=== PATIENT | female | born 1935 | race Caucasian/White ===

== ENCOUNTER 2023-10-13 17:59 | Inpatient (IN) | payer MEDICARE, OTHER ==
--- NOTE | 2023-10-13 19:25 | CT ---
EXAMINATION TYPE: CT brain vincent sims con DATE OF EXAM: 10/13/2023 COMPARISON: None HISTORY: 88-year-old female pain after fall, head lac on back of head CT DLP: 1215.7 mGycm Automated exposure control for dose reduction was used. Technique: Examination of the head was done in axial plane without intravenous contrast. Coronal and sagittal reconstructions performed. CT of the cervical spine was obtained in axial plane without intravenous injection of contrast mater ial. Coronal and sagittal reformatted images were obtained from the axial views for evaluation of f ractures, spinal alignment and canal. FINDINGS: Head: There is no evidence of acute intracranial hemorrhage, acute ischemic changes, mass, mass-effect, or extra-axial fluid collection. There is no effacement of cerebral sulci or basal subarachnoid cister ns. There is mild ventriculomegaly, Rivera ratio calculated at 0.36. Mild periventricular white matter hypodensity. There is no midline shift. More-white matter distinction is preserved. Rightward nasal septal deviation. Paranasal sinuses and mastoid air cells well pneumatized. Orbits an d globes are intact. Mild left posterior scalp contusion and laceration. No calvarial fracture. Cervical spine: No craniocervical junction abnormality, predental space widening, or prevertebral soft tissue swellin g. Moderate multilevel spondylotic change throughout the cervical spine. Small disc osteophyte complexes are present. No evident canal compromise by CT. No acute fracture of the cervical spine. Alignment is maintained. Variable mild and moderate neural foraminal stenoses throughout. Sagittal and coronal reformatted images confirm above findings. COMBINED IMPRESSION: 1. Mild left posterior scalp contusion and laceration. 2. Note mild hydrocephalus, probably in part due to central cerebral atrophy. Correlate to exclude a component of NPH. 3. Otherwise, no acute intracranial abnormality seen. 4. Moderate spondylitic changes throughout the cervical spine. No acute fracture or malalignment seen .
--- NOTE | 2023-10-13 19:44 | XR ---
EXAMINATION TYPE: XR Hip LT and AP Pelvis DATE OF EXAM: 10/13/2023 7:26 PM CLINICAL INDICATION:Female, 88 years old with history of fall, hip pain; [facility] COMPARISON: None. TECHNIQUE: XR Hip LT and AP Pelvis; hip was examined in the frontal and lateral projections and a AP pelvis. FINDINGS/IMPRESSION: 1. Left femoral neck fracture with varus deformity and mild displacement.. 2. The remainder of the osseous structures are intact.
--- NOTE | 2023-10-13 19:45 | XR ---
EXAMINATION TYPE: XR chest 1V DATE OF EXAM: 10/13/2023 7:26 PM CLINICAL INDICATION:Female, 88 years old with history of PRE OP CLEARANCE; [facility] COMPARISON: Chest radiographs from 12/01/2022. TECHNIQUE: XR chest 1V Frontal view of the chest. FINDINGS: Lungs/Pleura: Prominent interstitial lung markings are seen scattered throughout the lungs with nguyen ening of the diaphragm and increased lucency of the lung apices. No evidence of focal consolidation, pneumothorax or pleural effusion. Pulmonary vascularity: Unremarkable. Heart/mediastinum: Cardiomediastinal silhouette is unremarkable. Musculoskeletal: No acute osseous pathology. Right axillary surgical clips are present. IMPRESSION: Chronic changes without acute pulmonary process. No significant change from prior.
[2023-10-13] MEDS ORDERED: ACETAMINOPHEN TAB 500 MG TAB PO STA (20:50)
--- NOTE | 2023-10-13 20:51 | ED ---
Fall HPI - General Chief Complaint: Fall Stated Complaint: fall Time Seen by Provider: 10/13/23 18:05 Source: patient Mode of arrival: EMS - History of Present Illness Initial Comments: 88-year-old female presents to the emergency department from [facility] home. She has a history of advanced dementia. Patient apparently took a fall at her facility and hit her head. No reported loss of consciousness. She does not take any blood thinners. She was reporting to some left hip pain and therefore patient required transfer into our facility. Injury happened earlier today. Patient is at her baseline in regards to her mental status. She denies any other injuries to include neck or back pain. No pain in her upper extremities. She is refusing pain medications. No other alleviating, precipitating or modifying factors - Related Data Home Medications Medication Instructions Recorded Confirmed Aspirin [Adult Low Dose Aspirin EC] 81 mg PO DAILY@0800 03/26/16 10/13/23 Calcium Carb-Vit D 500Mg-5Mcg 1 tab PO DAILY@1700 03/26/16 10/13/23 [Oscal 500+D] atenoloL [Atenolol] 25 mg PO BID@0800,1700 03/26/16 10/13/23 Acetaminophen Tab [Tylenol] 650 mg PO Q4H PRN 10/13/23 10/13/23 Calcium Carbonate [Tums] 1,000 mg PO Q2H PRN 10/13/23 10/13/23 Citrucel 500mg Tablet 1 tab PO DAILY@0800 10/13/23 10/13/23 Docusate Sodium [Dok] 100 mg PO DAILY PRN 10/13/23 10/13/23 Lactobacillus Acidophilus 1 cap PO DAILY@0800 10/13/23 10/13/23 [Acidophilus Probiotic] Levothyroxine Sodium [Synthroid] 100 mcg PO DAILY@0700 10/13/23 10/13/23 Loperamide [Imodium] 2 mg PO QID PRN 10/13/23 10/13/23 Lovastatin [Mevacor] 40 mg PO HS@199910/13/23 10/13/23 Magnesium Hydroxide [Milk of 2,400 mg PO DAILY PRN 10/13/23 10/13/23 Magnesia] Hilbert-3/Dha/Epa/Fish Oil [Fish Oil 1 cap PO DAILY@0800 10/13/23 10/13/23 1,000 mg Softgel] Ondansetron [Zofran] 4 mg PO DAILY PRN 10/13/23 10/13/23 Rivastigmine 13.3MG/24Hr Patch 1 patch TRANSDERM DAILY@0800 10/13/23 10/13/23 [Exelon 13.3MG/24Hr Patch] Sertraline [Zoloft] 50 mg PO DAILY@0800 10/13/23 10/13/23 Zinc Oxide [Cozima] 1 applic TOPICAL DAILY PRN 10/13/23 10/13/23 Zinc Oxide [Cozima] 1 applic TOPICAL TID 10/13/23 10/13/23 guaiFENesin-DM 100-10MG/5ML 5 ml PO Q4H PRN 10/13/23 10/13/23 [Robitussin DM] Allergies Allergy/AdvReac Type Severity Reaction Status Date / Time acetaminophen AdvReac Unknown Verified 10/13/23 21:24 [From Darvocet-N] morphine AdvReac Nausea & Verified 10/13/23 21:24 Vomiting propoxyphene AdvReac Unknown Verified 10/13/23 21:24 [From Darvocet-N] Review of Systems ROS Statement: Those systems with pertinent positive or pertinent negative responses have been documented in the HPI. ROS Other: All systems not noted in ROS Statement are negative. Past Medical History Past Medical History: Asthma, Cancer, Dementia, Hypertension, Pneumonia, Thyroid Disorder Additional Past Medical History / Comment(s): breast CA 1986, SBO; hypercholesterolemia History of Any Multi-Drug Resistant Organisms: None Reported Past Surgical History: Appendectomy, Bowel Resection, Breast Surgery, Cholecystectomy, Hysterectomy Additional Past Surgical History / Comment(s): right mastectomy with lymph nodes removed. Past Anesthesia/Blood Transfusion Reactions: No Reported Reaction Past Psychological History: No Psychological Hx Reported Past Alcohol Use History: None Reported Past Drug Use History: None Reported - Past Family History Daughter(s) Additional Family Medical History / Comment(s): no medical history Son(s) Additional Family Medical History / Comment(s): no medical history. still living General Exam Limitations: no limitations General appearance: alert, in no apparent distress Head exam: Present: normocephalic, other (Scalp hematoma left occiput with a central small laceration measuring 5 mm. Not actively bleeding) Eye exam: Present: normal appearance, PERRL, EOMI. Absent: scleral icterus, conjunctival injection, periorbital swelling ENT exam: Present: normal exam, mucous membranes moist Neck exam: Present: normal inspection. Absent: tenderness, meningismus, lymphadenopathy Respiratory exam: Present: normal lung sounds bilaterally. Absent: respiratory distress, wheezes, rales, rhonchi, stridor Cardiovascular Exam: Present: regular rate, normal rhythm, normal heart sounds. Absent: systolic murmur, diastolic murmur, rubs, gallop, clicks GI/Abdominal exam: Present: soft, normal bowel sounds. Absent: distended, tenderness, guarding, rebound, rigid Extremities exam: Present: tenderness (To palpation of the left hip. No gross deformity appreciated patient has skin tear to the left dorsal hand), normal capillary refill. Absent: pedal edema, joint swelling, calf tenderness Back exam: Present: normal inspection Neurological exam: Present: alert, CN II-XII intact Psychiatric exam: Present: normal affect, normal mood Skin exam: Present: warm, dry, intact, normal color. Absent: rash Course Vital Signs 10/13/23 18:01 Temperature 97.6 F Pulse Rate 61 Respiratory 18 Rate Blood Pressure 178/79 O2 Sat by Pulse 94 L Oximetry Medical Decision Making - Medical Decision Making Was pt. sent in by a medical professional or institution (SULEIMAN Jones, COMMERCIAL FIELD INSPECTOR, urgent care, hospital, or long-term...) When possible be specific @ -[facility] home Did you speak to anyone other than the patient for history (EMS, parent, family, police, friend...)? What history was obtained from this source @ -EMS and the daughter Did you review nursing and triage notes (agree or disagree)? Why? @ -I reviewed and agree with nursing and triage notes Were old charts reviewed (outside hosp., previous admission, EMS record, old EKG, old radiological studies, urgent care reports/EKG's, long-term records)? Report findings @ -No old charts were reviewed Differential Diagnosis (chest pain, altered mental status, abdominal pain women, abdominal pain men, vaginal bleeding, weakness, fever, dyspnea, syncope, headache, dizziness, GI bleed, back pain, seizure, CVA, palpatations, mental health, musculoskeletal)? @ -Differential Musculoskeletal Muscular strain, contusion, ligament sprain, fracture, arthritis, septic arthritis, bursitis, cellulitis, muscle spasm, nerve compression, DVT, arterial occlusion, herpes zoster, electrolyte abnormality, tumor.... This is not meant to be in all inclusive list EKG interpreted by me (3pts min.). @ -Pending X-rays interpreted by me (1pt min.). @ -Yes and demonstrates a left femoral neck fracture CT interpreted by me (1pt min.). @ -yes and demonstrates no acute intracranial process U/S interpreted by me (1pt. min.). @ -None done What testing was considered but not performed or refused? (CT, X-rays, U/S, labs)? Why? @ -None What meds were considered but not given or refused? Why? @ -Pain medications were offered on several occasions however the patient refused Did you discuss the management of the patient with other professionals (professionals i.e. , PA, COMMERCIAL FIELD INSPECTOR, lab, RT, psych nurse, social director, pizzamaker, teacher, senior compliance officer, comp field case manager)? Give summary @ -Spoke with Dr. Bennett who will admit the patient. States her surgery will be planned for Monday Was smoking cessation discussed for >3mins.? @ -No Was critical care preformed (if so, how long)? @ -No Were there social determinants of health that impacted care today? How? (Homelessness, low income, unemployed, alcoholism, drug addiction, transportation, low edu. Level, literacy, decrease access to med. care, custodial, rehab)? @ -No Was there de-escalation of care discussed even if they declined (Discuss DNR or withdrawal of care, Hospice)? DNR status @ -Yes and patient wishes to be full code and undergo the procedure What co-morbidities impacted this encounter? (DM, HTN, Smoking, COPD, CAD, Cancer, CVA, ARF, Chemo, Hep., AIDS, mental health diagnosis, sleep apnea, morbid obesity)? @ -Dementia Was patient admitted / discharged? Hospital course, mention meds given and route, prescriptions, significant lab abnormalities, going to OR and other pertinent info. @ -Upon arrival patient was placed into room 28. Thorough history and physical exam was performed. Patient is offered pain medications however refuses. She does ago for a CT of her brain and cervical spine as well as a pelvic x-ray. Patient does have identifiable left hip fracture blood work is conducted and EKG is performed. Patient willing to undergo surgery. Called and spoke with Dr. Elaine who was agreeable to accepting admission for the patient. Surgery will likely happen on Monday. Patient is given a diet and pain medications. Scalp laceration not in need of repair. Patient was agreeable to this treatment plan and she is currently pending about on the floor Undiagnosed new problem with uncertain prognosis? @ -No Drug Therapy requiring intensive monitoring for toxicity (Heparin, Nitro, Insulin, Cardizem)? @ -No Were any procedures done? @ -No Diagnosis/symptom? @ -Acute fall, acute left femoral neck fracture, scalp hematoma, blunt head trauma Acute, or Chronic, or Acute on Chronic? @ -Acute Uncomplicated (without systemic symptoms) or Complicated (systemic symptoms)? @ -Complicated Side effects of treatment? @ -No Exacerbation, Progression, or Severe Exacerbation? @ -No Poses a threat to life or bodily function? How? (Chest pain, USA, ND, pneumonia, PE, COPD, DKA, ARF, appy, cholecystitis, CVA, Diverticulitis, Homicidal, Suicidal, threat to staff... and all critical care pts) @ -No Disposition Clinical Impression: Fall, Closed left hip fracture, Blunt head injury, Scalp laceration Disposition: ADMITTED IP TO THIS [facility] Condition: Stable Is patient prescribed a controlled substance at d/c from ED?: No Time of Disposition: 20:53 Decision to Admit Reason: Admit from EC Decision Date: 10/13/23 Decision Time: 20:53
[2023-10-13] MEDS ORDERED: NALOXONE 0.4 MG/ML 1 ML VIAL IV PRN (20:53)
[2023-10-13] MEDS ORDERED: guaiFENesin-DM 100-10MG/5ML 10 ML CUP PO PRN (22:00)
[2023-10-13] MEDS: HYDROcodone/APAP 5-325MG 1 EACH TAB PO PRN (23:06)
[2023-10-13 23:38] LABS: Basophils % (A) 0 %; Eosinophils % (A) 0 %; Lymphocytes # (A) 0.9 k/uL (1.0-4.8); Lymphocytes % (A) 6 %; MCH 30.7 pg (25.0-35.0); MCHC 32.6 g/dL (31.0-37.0); MCV 94.2 fL (80.0-100.0); Mean Platelet Volume 7.4; Monocytes # (A) 0.4 k/uL (0-1.0); Monocytes % (A) 3 %; Neutrophils # (A) 13.3 k/uL (1.3-7.7); Neutrophils % (A) 90 %; Platelet Count 207 k/uL (150-450); RBC 4.57 m/uL (3.80-5.40); RDW 12.9 % (11.5-15.5); WBC 14.7 k/uL (3.8-10.6)
[2023-10-13 23:47] LABS: ALT 20 U/L (4-34); AST 34 U/L (14-36); African American GFR (CKD) >90 (>60 ml/min/1.73 sqM); Albumin 4.5 g/dL (3.5-5.0); Alkaline Phosphatase 72 U/L (38-126); Anion Gap 12 mmol/L; Blood Urea Nitrogen 36 mg/dL (7-17); Calcium 9.3 mg/dL (8.4-10.2); Carbon Dioxide 25 mmol/L (22-30); Chloride 102 mmol/L (98-107); Glucose 125 mg/dL (74-99); Non-African American GFR(CKD) 84 (>60 ml/min/1.73 sqM); Potassium 4.2 mmol/L (3.5-5.1); Sodium 139 mmol/L (137-145); Total Bilirubin 0.8 mg/dL (0.2-1.3)
[2023-10-14] MEDS ORDERED: ONDANSETRON ODT 4 MG TAB PO STA (02:10)
[2023-10-14] MEDS ORDERED: MORPHINE SULFATE 2 MG/ML SYRINGE IVP STA (02:11)
--- NOTE | 2023-10-14 05:06 | P.CONS ---
History of Present Illness - Reason for Consult Consult date: 10/14/23 - History of Present Illness Patient is a 88 yo F with a PMH of advanced dementia, hypertension, hyperlipidemia, hypothyroidism, and asthma who presented from [facility] home after a fall. No history could be obtained from the patient due to underlying dementia. History thereby obtained from the chart. The patient had reportedly fallen at her facility and had hit her head with no reports of loss of consciousness. She had reported immediate left hip pain and was subsequently brought to the emergency room. At time of interview, the patient reported ongoing left hip pain with movement but denied any additional complaints. Denies complaints of chest discomfort, shortness of breath, fever, chills, cough, nausea, vomiting, abdominal pain, diarrhea. Attempted to contact the patient's spouse with the phone number listed in the chart with no response. Hip and pelvis x-rays in the emergency room revealed a left femoral neck fracture with mild displacement. CT head and cervical spine revealed mild hydrocephalus without any acute abnormalities. EKG revealed sinus rhythm with first-degree AV block with PVCs of 63 bpm as reviewed by me with no ST/T-wave changes noted. Chest x-ray was unremarkable. Laboratory evaluation revealed leukocytosis of 14.7, BUN 36, creatinine 0.57, and glucose 125. ED documentation reviewed and case discussed with ED provider. Review of systems: Pertinent positives and negatives as discussed in HPI, a complete review of systems was performed and all other systems are negative. Physical examination: Vital signs reviewed General: non toxic, no distress, appears at stated age, normal weight Derm: no unusual rashes/lesions, warm Head: atraumatic, normocephalic, symmetric Eyes: EOMI, no lid lag, anicteric sclera, pupils equal round reactive to light ENT: Nose and ears atraumatic Neck: No cervical lymphadenopathy, trachea midline, supple Mouth: no lip lesion, mucus membranes moist Cardiovascular: S1S2 reg, no murmur, positive dorsalis pedis pulse bilateral, no edema Lungs: CTA bilateral, no rhonchi, no rales, no accessory muscle use Abdominal: soft, nontender to palpation, no guarding Ext: muscle strength 5/5 of all extremities except proximal LLE, no gross muscle atrophy, no contractures Neuro: CN II-XI grossly intact, no gross focal neuro deficits Psych: Alert, oriented only to self Assessment: Leukocytosis, likely due to acute stressor with no signs of active infection at this time Prerenal azotemia Chronic conditions: Dementia, hypertension, hyperlipidemia, hypothyroidism, asthma Traumatic left femoral neck fracture Imaging: Hip and pelvis x-rays in the emergency room revealed a left femoral neck fracture with mild displacement. CT head and cervical spine revealed mild hydrocephalus without any acute abnormalities. EKG revealed sinus rhythm with first-degree AV block with PVCs of 63 bpm as reviewed by me with no ST/T-wave changes noted. Chest x-ray was unremarkable. Data Review: Laboratory evaluation revealed leukocytosis of 14.7, BUN 36, creatinine 0.57, and glucose 125. Plan: Continue with home medications Defer management of pain control and DVT prophylaxis to the primary surgery service Continue with IV fluids normal saline 75 mL per hour Attempt to obtain further information in am from patient's spouse if possible Preoperative evaluation The patient has advanced dementia and thereby history is limited although patient is currently denying chest discomfort or shortness of breath. She does not appear to be on diuretics with no reports of congestive heart failure on her chart. The patient is currently optimized for orthopedic surgical seizure with no obvious modifiable risk factors and no obvious nonsurgical alternatives. RCRI score: 0 points. 3.9% 30 day risk of [place], cardiac arrest, or Past Medical History Past Medical History: Asthma, Cancer, Dementia, Hypertension, Pneumonia, Thyroid Disorder Additional Past Medical History / Comment(s): breast CA 1986, SBO; hypercholesterolemia History of Any Multi-Drug Resistant Organisms: None Reported Past Surgical History: Appendectomy, Bowel Resection, Breast Surgery, Cholecystectomy, Hysterectomy Additional Past Surgical History / Comment(s): right mastectomy with lymph nodes removed. Past Anesthesia/Blood Transfusion Reactions: No Reported Reaction Past Psychological History: No Psychological Hx Reported Smoking Status: Never smoker Past Alcohol Use History: None Reported Past Drug Use History: None Reported - Past Family History Daughter(s) Additional Family Medical History / Comment(s): no medical history Son(s) Additional Family Medical History / Comment(s): no medical history. still living Medications and Allergies Home Medications Medication Instructions Recorded Confirmed Type Aspirin [Adult Low Dose Aspirin EC] 81 mg PO DAILY@0800 03/26/16 10/13/23 History Calcium Carb-Vit D 500Mg-5Mcg 1 tab PO DAILY@1700 03/26/16 10/13/23 History [Oscal 500+D] atenoloL [Atenolol] 25 mg PO BID@0800,1700 //10/13/23 History Acetaminophen Tab [Tylenol] 650 mg PO Q4H PRN 10/13/23 10/13/23 History Calcium Carbonate [Tums] 1,000 mg PO Q2H PRN 10/13/23 10/13/23 History Citrucel 500mg Tablet 1 tab PO DAILY@0800 10/13/23 10/13/23 History Docusate Sodium [Dok] 100 mg PO DAILY PRN 10/13/23 10/13/23 History Lactobacillus Acidophilus 1 cap PO DAILY@0800 10/13/23 10/13/23 History [Acidophilus Probiotic] Levothyroxine Sodium [Synthroid] 100 mcg PO DAILY@0700 10/13/23 10/13/23 History Loperamide [Imodium] 2 mg PO QID PRN 10/13/23 10/13/23 History Lovastatin [Mevacor] 40 mg PO HS@199910/13/23 10/13/23 History Magnesium Hydroxide [Milk of 2,400 mg PO DAILY PRN 10/13/23 10/13/23 History Magnesia] Ava-3/Dha/Epa/Fish Oil [Fish Oil 1 cap PO DAILY@0800 10/13/23 10/13/23 History 1,000 mg Softgel] Ondansetron [Zofran] 4 mg PO DAILY PRN 10/13/23 10/13/23 History Rivastigmine 13.3MG/24Hr Patch 1 patch TRANSDERM DAILY@0800 10/13/23 10/13/23 History [Exelon 13.3MG/24Hr Patch] Sertraline [Zoloft] 50 mg PO DAILY@0800 10/13/23 10/13/23 History Zinc Oxide [Cozima] 1 applic TOPICAL DAILY PRN 10/13/23 10/13/23 History Zinc Oxide [Cozima] 1 applic TOPICAL TID 10/13/23 10/13/23 History guaiFENesin-DM 100-10MG/5ML 5 ml PO Q4H PRN 10/13/23 10/13/23 History [Robitussin DM] Allergies Allergy/AdvReac Type Severity Reaction Status Date / Time acetaminophen AdvReac Unknown Verified 10/13/23 21:24 [facility] morphine AdvReac Nausea & Verified 10/13/23 21:24 Vomiting propoxyphene AdvReac Unknown Verified 10/13/23 21:24 [[facility]] Physical Exam Vitals: Vital Signs Temp Pulse Pulse Resp BP BP Pulse Ox 10/14/23 02:00 99.6 F 71 17 165/80 93 L 10/13/23 23:40 63 18 161/75 96 10/13/23 18:01 97.6 F 61 18 178/79 94 L Intake and Output 10/13/23 10/13/23 10/14/23 14:59 22:59 06:59 Other: Weight 52.163 kg 52.163 kg Results CBC & Chem 7: 10/13/23 23:20 10/13/23 23:20 Labs: Abnormal Lab Results - Last 24 Hours (Table) 10/13/23 10/13/23 Range/Units 23:20 23:20 WBC 14.7 H (3.8-10.6) k/uL Neutrophils # 13.3 H (1.3-7.7) k/uL Lymphocytes # 0.9 L (1.0-4.8) k/uL BUN 36 H (7-17) mg/dL Glucose 125 H (74-99) mg/dL
[2023-10-14] MEDS: SODIUM CHLORIDE 0.9% 1,000 ML IV SCH ×2 (05:43→19:59)
[2023-10-14] MEDS: LEVOTHYROXINE 100 MCG TAB PO SCH ×2 (06:28→09:50)
[2023-10-14 07:46] LABS: African American GFR (CKD) >90 (>60 ml/min/1.73 sqM); Anion Gap 11 mmol/L; Blood Urea Nitrogen 36 mg/dL (7-17); Calcium 8.8 mg/dL (8.4-10.2); Carbon Dioxide 24 mmol/L (22-30); Chloride 101 mmol/L (98-107); Glucose 135 mg/dL (74-99); Non-African American GFR(CKD) 82 (>60 ml/min/1.73 sqM); Sodium 136 mmol/L (137-145)
[2023-10-14 08:19] LABS: Basophils # (A) 0.1 k/uL (0-0.2); Basophils % (A) 0 %; Eosinophils # (A) 0.1 k/uL (0-0.7); Eosinophils % (A) 0 %; HCT 39.1 % (34.0-46.0); HGB 12.7 gm/dL (11.4-16.0); Lymphocytes % (A) 8 %; MCHC 32.4 g/dL (31.0-37.0); MCV 95.6 fL (80.0-100.0); Mean Platelet Volume 7.7; Monocytes # (A) 0.4 k/uL (0-1.0); Monocytes % (A) 3 %; Neutrophils # (A) 11.1 k/uL (1.3-7.7); Neutrophils % (A) 87 %; Platelet Count 202 k/uL (150-450); RDW 12.9 % (11.5-15.5); WBC 12.8 k/uL (3.8-10.6)
[2023-10-14] MEDS ORDERED: DOCUSATE 100 MG CAP PO PRN (09:00)
[2023-10-14] MEDS ORDERED: ONDANSETRON 4 MG TAB PO PRN (09:00)
[2023-10-14] MEDS: atenoloL 25 MG TAB PO SCH ×2 (09:49→18:34)
[2023-10-14] MEDS: HYDROcodone/APAP 5-325MG 1 EACH TAB PO PRN ×2 (09:50→15:47)
[2023-10-14] MEDS: SERTRALINE 50 MG TAB PO SCH (09:50)
[2023-10-14] MEDS: RIVASTIGMINE 13.3MG/24HR PATCH TRANSDERM SCH (09:51)
--- NOTE | 2023-10-14 10:19 | P.HPOR ---
History of Present Illness H&P Date: 10/14/23 Chief Complaint: Left hip pain . Patient is an 88-year-old female who presents to the emergency department yesterday from [facility] home status post fall. Patient does have a past medical history significant for advanced dementia, hypertension, hyperlipidemia, hypothyroidism and asthma. Apparently patient fell at facility and hit her head. There is no reported loss of consciousness. Patient does not take any blood thinners at baseline. Orthopedics was consulted for left hip pain. X- rays performed in the ER do reveal left hip femoral neck fracture. Patient was seen at bedside this morning. Patient states she does have left hip pain. Patient cannot recall any other events of yesterday due to medical history with dementia. Patient denies any other areas of pain. Patient denies any other previous orthopedic surgical history. Patient denies any upper extremity pain. Patient denies being on blood thinners. Patient denies chest pain, fever, shortness breath, nausea, vomiting, change in vision, loss of bowel/bladder control. Past Medical History Past Medical History: Asthma, Cancer, Dementia, Hypertension, Pneumonia, Thyroid Disorder Additional Past Medical History / Comment(s): breast CA 1986, SBO; hypercholesterolemia History of Any Multi-Drug Resistant Organisms: None Reported Past Surgical History: Appendectomy, Bowel Resection, Breast Surgery, Cholecystectomy, Hysterectomy Additional Past Surgical History / Comment(s): right mastectomy with lymph nodes removed. Past Anesthesia/Blood Transfusion Reactions: No Reported Reaction Past Psychological History: No Psychological Hx Reported Smoking Status: Never smoker Past Alcohol Use History: None Reported Past Drug Use History: None Reported - Past Family History Daughter(s) Additional Family Medical History / Comment(s): no medical history Son(s) Additional Family Medical History / Comment(s): no medical history. still living Medications and Allergies Home Medications Medication Instructions Recorded Confirmed Type Aspirin [Adult Low Dose Aspirin EC] 81 mg PO DAILY@0800 03/26/16 10/13/23 History Calcium Carb-Vit D 500Mg-5Mcg 1 tab PO DAILY@1700 03/26/16 10/13/23 History [Oscal 500+D] atenoloL [Atenolol] 25 mg PO BID@0800,1700 03/26/16 10/13/23 History Acetaminophen Tab [Tylenol] 650 mg PO Q4H PRN 10/13/23 10/13/23 History Calcium Carbonate [Tums] 1,000 mg PO Q2H PRN 10/13/23 10/13/23 History Citrucel 500mg Tablet 1 tab PO DAILY@0800 10/13/23 10/13/23 History Docusate Sodium [Dok] 100 mg PO DAILY PRN 10/13/23 10/13/23 History Lactobacillus Acidophilus 1 cap PO DAILY@0800 10/13/23 10/13/23 History [Acidophilus Probiotic] Levothyroxine Sodium [Synthroid] 100 mcg PO DAILY@0700 10/13/23 10/13/23 History Loperamide [Imodium] 2 mg PO QID PRN 10/13/23 10/13/23 History Lovastatin [Mevacor] 40 mg PO HS@199910/13/23 10/13/23 History Magnesium Hydroxide [Milk of 2,400 mg PO DAILY PRN 10/13/23 10/13/23 History Magnesia] [place]-3/Dha/Epa/Fish Oil [Fish Oil 1 cap PO DAILY@0800 10/13/23 10/13/23 History 1,000 mg Softgel] Ondansetron [Zofran] 4 mg PO DAILY PRN 10/13/23 10/13/23 History Rivastigmine 13.3MG/24Hr Patch 1 patch TRANSDERM DAILY@0800 10/13/23 10/13/23 History [Exelon 13.3MG/24Hr Patch] Sertraline [Zoloft] 50 mg PO DAILY@0800 10/13/23 10/13/23 History Zinc Oxide [Cozima] 1 applic TOPICAL DAILY PRN 10/13/23 10/13/23 History Zinc Oxide [Cozima] 1 applic TOPICAL TID 10/13/23 10/13/23 History guaiFENesin-DM 100-10MG/5ML 5 ml PO Q4H PRN 10/13/23 10/13/23 History [Robitussin DM] Allergies Allergy/AdvReac Type Severity Reaction Status Date / Time acetaminophen AdvReac Unknown Verified 10/13/23 21:24 [From Darvocet-N] morphine AdvReac Nausea & Verified 10/13/23 21:24 Vomiting propoxyphene AdvReac Unknown Verified 10/13/23 21:24 [From Darvocet-N] Physical Examination Inspection: Negative for any open fractures, significant erythema. There is some mild swelling present to the left hip diffusely. The left leg does appear to be shortened and externally rotated. Sensation: Equal, symmetric, bilaterally intact throughout the upper and lower extremities on exam. Palpation: significant TTP diffusely throughout the left hip. Nontender to palpation throughout rest exam. Range of motion: Full range of motion throughout bilateral upper extremity is in right lower extremity exam. Left lower extremity range of motion unable to be performed due to injury of left hip. Motor: 4/5 in all major motor groups in bilateral upper extremities and right lower extremity exam. Left lower extremity motor exam not performed due to injury Neurovascular: Radial pulses intact, 2+ bilaterally. Cap refill under 3 seconds in digits of upper extremities. DP pulses palpable bilaterally. Special tests: Positive log roll maneuver on the left. Negative Homans bilaterally Results - Labs Labs: Abnormal Lab Results - Last 24 Hours (Table) 10/13/23 10/13/23 10/14/23 Range/Units 23:20 23:20 06:32 WBC 14.7 H (3.8-10.6) k/uL Neutrophils # 13.3 H (1.3-7.7) k/uL Lymphocytes # 0.9 L (1.0-4.8) k/uL Sodium 136 L (137-145) mmol/L BUN 36 H 36 H (7-17) mg/dL Glucose 125 H 135 H (74-99) mg/dL H & H 10/13/23 Range/Units 23:20 Hgb 14.0 (11.4-16.0) gm/dL Hct 43.0 (34.0-46.0) % Result Diagrams: 10/14/23 06:32 10/14/23 06:32 - Diagnostic results Hip x-ray: report reviewed, image reviewed (X-ray of the left hip does reveal left hip femoral neck fracture.) Assessment and Plan Assessment: 1. Left hip femoral neck fracture Plan: 1. Left hip femoral neck fracture - x-rays of the left hip does reveal left hip femoral neck fracture. I did discuss the findings of the imaging with patient at bedside this morning. At this time we're recommending orthopedic surgical intervention in the form of left hip hemiarthroplasty. Surgery has been scheduled for tomorrow, 10/15/2030left hip hemiarthroplasty. With hold blood thinners at this time. Pain medication as needed. Nothing by mouth beginning midnight tonight. Nonweightbearing left lower extremity. We'll continue to follow patient during her stay in hospital. 2. Appreciate medical management 3. Pain management - Tylenol; [place] 4. DVT prophylaxis - with hold blood thinners at this time 5. GI prophylaxis - Colace 6. PT/OT - nonweightbearing left lower extremity 7. Encourage incentive spirometer use Time with Patient: Less than 30
[2023-10-14 14:20] LABS: INR 1.1 (<1.2); Partial Thromboplastin Time 25.4 sec (22.0-30.0); Prothrombin Time 12.1 sec (10.0-12.5)
[2023-10-14] MEDS: CALCIUM CARB-VIT D 500 MG-5 MCG TAB PO SCH (18:34)
[2023-10-14] MEDS: ATORVASTATIN 10 MG TAB PO SCH (20:07)
[2023-10-15] MEDS: LEVOTHYROXINE 100 MCG TAB PO SCH (05:11)
[2023-10-15] MEDS ORDERED: fentaNYL (PF) 50 MCG/ML 2 ML AMP ONE (08:12)
[2023-10-15] MEDS ORDERED: KETAMINE HCL IN 0.9 % NACL 50 MG/5 ML SYRINGE ONE (08:12)
[2023-10-15] MEDS ORDERED: LACTATED RINGERS 1,000 ML IV ONE ×2 (08:18→10:29)
[2023-10-15] MEDS ORDERED: SODIUM CHLORIDE 0.9% 50 ML with ceFAZolin 1,000 MG IV ONE ×2 (08:30)
[2023-10-15] MEDS ORDERED: ceFAZolin 1,000 MG in SODIUM CHLORIDE 0.9% 1,000 ML IRRIGATION ONE (09:11)
[2023-10-15] MEDS ORDERED: HYDROmorphone 0.5 MG/0.5 ML SYRINGE IVP PRN ×2 (10:40)
[2023-10-15] MEDS ORDERED: MAGNESIUM HYDROXIDE 2,400 MG/30 ML CUP PO PRN (10:40)
[2023-10-15] MEDS ORDERED: NALOXONE 0.4 MG/ML 1 ML VIAL IV PRN (10:40)
--- NOTE | 2023-10-15 10:53 | P.OP ---
Date of Procedure: 10/15/23 Preoperative Diagnosis: Left hip femoral neck fracture Postoperative Diagnosis: Left hip femoral neck fracture Procedure(s) Performed: Left hip hemiarthroplasty for femoral neck fracture Implants: 1.)[place] Accolade II femoral stem, neck angle 132, size 5, 35mm neck length. 2.)[place] V40 Femoral head 28mm OD, -4 offset. 3.)[place] UHR Max head Bipolar Component, OD 47mm. Anesthesia: spinal Surgeon: Myles Bennett Lead Electrician #1: Jorge Burgess Estimated Blood Loss (ml): 300 Pathology: none sent Condition: stable Disposition: PACU Description of Procedure: This is a 88 year old female with multiple medical comorbidities who presented s/p fall from standing on to their left hip that occurred at her assisted living facility with inability to ambulate and pain in their hip. The patient was evaluated in the ED and admitted to the hospital with medical clearance for surgical intervention. Risks and benefits of surgery including bleeding, damage to surrounding tissue, infection, need for further surgery as well as risks of anesthesia including DVT pulmonary embolism and even and the patient wished to proceed with surgical intervention. The patient was seen in the pre- operative area by myself. Consent and H&P were completed and updated. The correct extremity was marked in the pre-operative area by myself and all other question were answered. Operative narrative: The patient was brought to the operating room by the department of anesthesia. Spinal anesthesia was performed by the department of anesthesia. The patient was then transferred carefully to the operative table and placed in the lateral position with an axillary role placed in the contralateral arm-pit region and the patient was secured in the lateral position with the aid of a pegboard with the hip perpendicular to the floor. All bony prominences were well padded. The left lower extremity was then prepped and draped in normal sterile fashion. Pre-operative time out was performed indicating the correct patient, procedure and laterality. All in the room agreed. Pre-operative antibiotics were given prior to skin incision. A curvilinear incision was made with a 10-blade scalpel on the lateral aspect of the hip, slightly posterior to the greater trochanter and carried distally towards the axis of the femoral shaft to initiate the posterior approach to the hip joint. Bovie cautery was used for meticulous hemostasis and dissection was then taken down to the tensor fascia. Tensor fascia was incised distally and extended proximally to the gluteus carline muscle. Blunt finger dissection was then used to split the gluteus carline muscle in its natural plane. Charnley retractor was then placed deep to the tensor fascia and gluteus carline to un veil the trochanteric bursa. Bursa was sharply incised taking care to protect the sciatic nerve posteriorly. The short external rotators were then identified. Reji retractor was then placed between the gluteus medius and piriformis tendon. The piriformis tendon and short external rotators were then tagged with a #5 Ethibond suture. Using bovie cautery the short external rotators were then incised off of their jessica insertion at the piriformis fossa and reflected posteriorly to protect the sciatic nerve. The posterior hip capsule was then incised in a L shaped fashion along the superior portion of the femoral neck taking care to stay on bone. Fracture hematoma was then evacuated, the femoral head was then extracted with a corkscrew and sized to a 47. The acetabulum was then thoroughly irrigated and all fracture fragments were debrided and removed and the labrum was intact with no signs of acetabular arthritis. Size 47 and 48 were both trialed on a head on a stick was then placed into the acetabulum with good suction and appropriate fit and decision was made to go forward with a size 47 outer diameter head. Further remnants of the external rotator insertion were debrided form the piriformis fossa and femoral elevator and Comerio retractor was used to elevate the femur. A touch up neck was performed 1.5cm proximal to the lesser trochanter. Box osteotome was then utilized to gain entrance into the medullary canal taking care to stay lateralized. Axial canal finder was then inserted down the femoral shaft again keeping lateral pressure upon insertion. Sequential femoral broaching was then performed starting with a size 0 broach up to a size 5 which appeared to have a solid fit. A standard length neck and 0 offset femoral head was trialed. The hip was reduced and leg lengths were checked and found to be acceptable. The hip appeared to have good stability. The hip was then dislocated and the stem was found to be intact with good fit still after trialing. Final implants were then selected including a size 5, 132 degree neck femoral stem with a 47 outer diameter bipolar head and a -4 offset which was assembled and inserted into the femoral canal with lateral pressure to avoid varus placement. The hip was then reduced and ranged again and was stable with appropriate tensioning and leg lengths. A 2.0 drill bit was then used to drill 2 holes in the posterior aspect of the greater trochanter. The previously tagged short external rotators and capsule were then passed through the drill holes with a suture passer and the hip was then abducted and externally rotated to take pressure off of the short external rotators and capsular repair. The #5 Ethibond sutures were then tied with appropriate tension and a solid repair of the external rotators and posterior capsule was able to be achieved. IT band was then closed with locking #1 Vicryl sutures. Subcutaneous closure was performed with 0 Vicryl followed by 2-0 Vicryl and rebecca for closure of skin. A sterile Optifoam dressing was then applied to the incision. The patient was then woken by the department of anesthesia and transferred back to the hospital bed and transported to PACU in stable condition. All needle and instrument counts were correct at the end of the procedure. Jorge BEARDEN was present for the case to assist in implant placement and manipulation of the hip. Myles Bennett DO Orthopedic Surgeon
--- NOTE | 2023-10-15 11:33 | XR ---
EXAMINATION TYPE: XR Hip Limited LT DATE OF EXAM: 10/15/2023 11:17 AM CLINICAL INDICATION:Female, 88 years old with history of S/P LEFT HIP HEMIARTHROPLASTY; [facility] COMPARISON: 10/11/2023. TECHNIQUE: XR Hip Limited LT; hip was examined in the frontal and lateral projections and a AP pelvis . FINDINGS: Post arthroplasty changes, hardware is intact, alignment is appropriate. No evidence of fra cture. Postoperative changes of the soft tissues with subcutaneous gas. No evidence of any acute osse ous pathology or joint dislocation. IMPRESSION: Hip arthroplasty with hardware intact and in appropriate alignment. No acute fracture.
[2023-10-15] MEDS: atenoloL 25 MG TAB PO SCH ×2 (11:34→17:15)
[2023-10-15] MEDS: SODIUM CHLORIDE 0.9% 1,000 ML IV SCH ×2 (11:35→21:33)
--- NOTE | 2023-10-15 12:17 | P.PN ---
Subjective Progress Note Date: 10/15/23 No new complaints today. Doing well following surgery with hip XR showing good fixation. Gen: awake, alert HEENT: normocephalic, atraumatic, good hearing acuity, moist mucous membranes Resp: good air exchange, breathing comfortably with no accessory muscle use CVS: good distal perfusion x 4, GI: soft, NTTP, ND : no SPT, no CVAT, west catheter is present MSK: no pitting edema, no clubbing Neuro: non-focal, moving all extremities Psych: cooperative, euthymic mood Hospital Course: Patient is a 88 yo F with a PMH of advanced dementia, hypertension, hyperlipidemia, hypothyroidism, and asthma who presented from [facility] home after a fall. Hip and pelvis x-rays in the emergency room revealed a left femoral neck fracture with mild displacement. CT head and cervical spine revealed mild hydrocephalus without any acute abnormalities. EKG revealed sinus rhythm with first-degree AV block with PVCs of 63 bpm as reviewed by me with no ST/T-wave changes noted. Chest x-ray was unremarkable. Laboratory evaluation revealed leukocytosis of 14.7, BUN 36, creatinine 0.57, and glucose 125. Assessment: Leukocytosis, likely due to acute stressor with no signs of active infection at this time Prerenal azotemia Chronic conditions: Dementia, hypertension, hyperlipidemia, hypothyroidism, asthma Traumatic left femoral neck fracture Imaging: Hip and pelvis x-rays in the emergency room revealed a left femoral neck fracture with mild displacement. CT head and cervical spine revealed mild hydrocephalus without any acute abnormalities. EKG revealed sinus rhythm with first-degree AV block with PVCs of 63 bpm as reviewed by me with no ST/T-wave changes noted. Chest x-ray was unremarkable. Data Review: Laboratory evaluation revealed leukocytosis of 14.7, BUN 36, creatinine 0.57, and glucose 125. Plan: Continue with home medications Defer management of pain control and DVT prophylaxis to the primary surgery service Continue with IV fluids normal saline 75 mL per hour Objective - Vital Signs Vital signs: Vital Signs Temp 97.4 F L 10/15/23 11:30 Pulse 64 10/15/23 11:30 Resp 16 10/15/23 11:32 BP 103/55 10/15/23 11:30 Pulse Ox 93 L 10/15/23 12:11 FiO2 Intake & Output 10/14/23 10/15/23 10/15/23 18:59 06:59 18:59 Intake Total 900 1251 Output Total 400 500 Balance 900 -400 751 Intake: IV 1251 Intake, IV Titration 900 Amount Sodium Chloride 0.9% 1, 900 000 ml @ 75 mls/hr IV . [id number] [facility] Rx#:[id number] Output: Urine 400 200 Estimated Blood Loss 300 Other: Voiding Method External Catheter Indwelling Catheter Indwelling Catheter - Labs CBC & Chem 7: 10/14/23 06:32 10/14/23 06:32
[2023-10-15 12:29] LABS: Basophils % (A) 0 %; Eosinophils # (A) 0.1 k/uL (0-0.7); Eosinophils % (A) 1 %; HCT 32.1 % (34.0-46.0); HGB 10.5 gm/dL (11.4-16.0); Lymphocytes # (A) 0.9 k/uL (1.0-4.8); Lymphocytes % (A) 10 %; MCH 30.9 pg (25.0-35.0); MCHC 32.7 g/dL (31.0-37.0); MCV 94.6 fL (80.0-100.0); Mean Platelet Volume 7.5; Monocytes # (A) 0.4 k/uL (0-1.0); Monocytes % (A) 4 %; Neutrophils # (A) 8.1 k/uL (1.3-7.7); Neutrophils % (A) 84 %; Platelet Count 160 k/uL (150-450); RBC 3.39 m/uL (3.80-5.40); RDW 12.9 % (11.5-15.5); WBC 9.6 k/uL (3.8-10.6)
[2023-10-15] MEDS: SERTRALINE 50 MG TAB PO SCH (13:19)
[2023-10-15] MEDS: RIVASTIGMINE 13.3MG/24HR PATCH TRANSDERM SCH (13:19)
[2023-10-15] MEDS: HYDROcodone/APAP 5-325MG 1 EACH TAB PO PRN (14:46)
[2023-10-15] MEDS: CALCIUM CARB-VIT D 500 MG-5 MCG TAB PO SCH (17:15)
[2023-10-15] MEDS: ATORVASTATIN 10 MG TAB PO SCH (20:30)
[2023-10-15] MEDS: ACETAMINOPHEN TAB 325 MG TAB PO PRN (20:30)
[2023-10-15] MEDS: SENNOSIDES-DOCUSATE SODIUM 1 EACH TAB PO SCH (21:58)
[2023-10-16] MEDS: LEVOTHYROXINE 100 MCG TAB PO SCH (06:07)
[2023-10-16] MEDS: RIVASTIGMINE 13.3MG/24HR PATCH TRANSDERM SCH (08:28)
[2023-10-16] MEDS: SERTRALINE 50 MG TAB PO SCH (08:29)
[2023-10-16] MEDS: ENOXAPARIN 30 MG/0.3 ML SYRINGE SQ SCH (08:29)
[2023-10-16] MEDS: atenoloL 25 MG TAB PO SCH ×2 (08:29→17:16)
[2023-10-16] MEDS: SODIUM CHLORIDE 0.9% 1,000 ML IV SCH ×2 (08:29→23:40)
[2023-10-16] MEDS: FERROUS SULFATE 325 MG TAB PO SCH (08:29)
[2023-10-16] MEDS: HYDROcodone/APAP 5-325MG 1 EACH TAB PO PRN ×2 (08:43→15:39)
--- NOTE | 2023-10-16 10:41 | P.PN ---
Subjective Progress Note Date: 10/16/23 No new complaints today. Doing well following surgery with hip XR showing good fixation. Gen: awake, alert HEENT: normocephalic, atraumatic, good hearing acuity, moist mucous membranes Resp: good air exchange, breathing comfortably with no accessory muscle use CVS: good distal perfusion x 4, GI: soft, NTTP, ND : no SPT, no CVAT, west catheter is present MSK: no pitting edema, no clubbing Neuro: non-focal, moving all extremities Psych: cooperative, euthymic mood Hospital Course: Patient is a 88 yo F with a PMH of advanced dementia, hypertension, hyperlipidemia, hypothyroidism, and asthma who presented from [facility] home after a fall. Hip and pelvis x-rays in the emergency room revealed a left femoral neck fracture with mild displacement. CT head and cervical spine revealed mild hydrocephalus without any acute abnormalities. EKG revealed sinus rhythm with first-degree AV block with PVCs of 63 bpm as reviewed by me with no ST/T-wave changes noted. Chest x-ray was unremarkable. Laboratory evaluation revealed leukocytosis of 14.7, BUN 36, creatinine 0.57, and glucose 125. Assessment: Leukocytosis, likely due to acute stressor with no signs of active infection at this time Prerenal azotemia Chronic conditions: Dementia, hypertension, hyperlipidemia, hypothyroidism, asthma Traumatic left femoral neck fracture Imaging: Hip and pelvis x-rays in the emergency room revealed a left femoral neck fracture with mild displacement. CT head and cervical spine revealed mild hydrocephalus without any acute abnormalities. EKG revealed sinus rhythm with first-degree AV block with PVCs of 63 bpm as reviewed by me with no ST/T-wave changes noted. Chest x-ray was unremarkable. Data Review: Laboratory evaluation revealed leukocytosis of 14.7, BUN 36, creatinine 0.57, and glucose 125. Plan: Continue with home medications Defer management of pain control and DVT prophylaxis to the primary surgery service Continue with IV fluids normal saline 75 mL per hour Objective - Vital Signs Vital signs: Vital Signs Temp 98.4 F 10/16/23 08:30 Pulse 78 10/16/23 08:30 Resp 18 10/16/23 08:30 BP 129/60 10/16/23 08:30 Pulse Ox 98 10/16/23 09:19 FiO2 Intake & Output 10/15/23 10/16/23 10/16/23 18:59 06:59 18:59 Intake Total 1776 Output Total 500 500 Balance 1276 -500 Intake: IV 1776 Sodium Chloride 0.9% 1, 525 000 ml @ 75 mls/hr IV . [id number] [facility] Rx#:[id number] Output: Urine 200 500 Estimated Blood Loss 300 Other: Voiding Method Indwelling Catheter Indwelling Catheter - Labs CBC & Chem 7: 10/15/23 11:40 10/14/23 06:32 Labs: Abnormal Lab Results - Last 24 Hours (Table) 10/15/23 Range/Units 11:40 RBC 3.39 L (3.80-5.40) m/uL Hgb 10.5 L (11.4-16.0) gm/dL Hct 32.1 L (34.0-46.0) % Neutrophils # 8.1 H (1.3-7.7) k/uL Lymphocytes # 0.9 L (1.0-4.8) k/uL
[2023-10-16] MEDS: CALCIUM CARB-VIT D 500 MG-5 MCG TAB PO SCH (15:39)
[2023-10-16] MEDS: SENNOSIDES-DOCUSATE SODIUM 1 EACH TAB PO SCH (20:27)
[2023-10-16] MEDS: ATORVASTATIN 10 MG TAB PO SCH (20:27)
[2023-10-17] MEDS: LEVOTHYROXINE 100 MCG TAB PO SCH (06:11)
[2023-10-17] MEDS: SERTRALINE 50 MG TAB PO SCH (08:36)
[2023-10-17] MEDS: RIVASTIGMINE 13.3MG/24HR PATCH TRANSDERM SCH (08:36)
[2023-10-17] MEDS: ENOXAPARIN 30 MG/0.3 ML SYRINGE SQ SCH (08:36)
[2023-10-17] MEDS: atenoloL 25 MG TAB PO SCH ×2 (08:36→18:16)
[2023-10-17] MEDS: HYDROcodone/APAP 5-325MG 1 EACH TAB PO PRN ×2 (08:37→13:18)
--- NOTE | 2023-10-17 11:25 | P.PN ---
Subjective Progress Note Date: 10/17/23 Patient seen and examined at bedside. No new complaints today. Did well with physical therapy. Gen: awake, alert HEENT: normocephalic, atraumatic, good hearing acuity, moist mucous membranes Resp: good air exchange, breathing comfortably with no accessory muscle use CVS: good distal perfusion x 4, GI: soft, NTTP, ND : no SPT, no CVAT MSK: no pitting edema, no clubbing Neuro: non-focal, moving all extremities Psych: cooperative, euthymic mood, oriented 1 Hospital Course: Patient is a 88 yo F with a PMH of advanced dementia, hypertension, hyperlipidemia, hypothyroidism, and asthma who presented from [facility] home after a fall. Hip and pelvis x-rays in the emergency room revealed a left femoral neck fracture with mild displacement. CT head and cervical spine revealed mild hydrocephalus without any acute abnormalities. EKG revealed sinus rhythm with first-degree AV block with PVCs of [address]/T-wave changes noted. Chest x-ray was unremarkable. Laboratory evaluation revealed leukocytosis of 14.7, BUN 36, creatinine 0.57, and glucose 125. She is now status post hemiar throplasty. Assessment: Leukocytosis, likely due to acute stressor with no signs of active infection at this time Prerenal azotemia Traumatic left femoral neck fracture, status post hemiarthroplasty Chronic conditions: Dementia, hypertension, hyperlipidemia, hypothyroidism, asthma Data Review today: Temperature 98.6, pulse 70, respiratory 16, blood pressure 131/65, saturating at 94% on 1 L. Plan: Continue with home medications Defer management of pain control and DVT prophylaxis to the primary surgery service Continue with IV fluids normal saline 75 mL per hour -Patient is medically optimized for discharge, will likely need subacute rehab. Thank you for allowing us to participate in the care of this pleasant patient. Do not hesitate to contact us with questions. Someone can be reached from the [facility] hospitalist group all hours of the day at [phone] or via perfect serve. Objective - Vital Signs Vital signs: Vital Signs Temp 98.6 F 10/17/23 07:56 Pulse 70 10/17/23 07:56 Resp 16 10/17/23 07:56 BP 131/65 10/17/23 07:56 Pulse Ox 94 L 10/17/23 07:56 FiO2 Intake & Output 10/16/23 10/17/23 10/17/23 18:59 06:59 18:59 Intake Total 200 Output Total 300 200 Balance -300 0 Intake: IV 200 Sodium Chloride 0.9% 1, 200 000 ml @ 75 mls/hr IV . [id number] [facility] Rx#:[id number] Output: Urine 300 200 Other: Voiding Method Indwelling Catheter External Catheter Diaper External Catheter # Voids 1 - Labs CBC & Chem 7: 10/15/23 11:40 10/14/23 06:32
--- NOTE | 2023-10-17 12:15 | P.PN ---
Subjective Progress Note Date: 10/16/23 Principal diagnosis: Left hip femoral neck fracture Patient was seen at bedside this morning lying semirecumbent position with dressing over the left hip. Patient says she has having a lot of pain to the left hip at this time. Patient says she is looking forward to working with therapy later today. Patient has Jasso in place. Patient denies chest pain, fever, shortness breath, nausea, vomiting, change in vision, loss of bowel/bladder control. Objective - Vital Signs Vital signs: Vital Signs Temp 97.5 F L 10/16/23 01:06 Pulse 71 10/16/23 01:06 Resp 18 10/16/23 01:06 BP 123/60 10/16/23 01:06 Pulse Ox 99 10/16/23 01:06 FiO2 Intake & Output 10/15/23 10/16/23 10/16/23 18:59 06:59 18:59 Intake Total 1776 Output Total 500 500 Balance 1276 -500 Intake: IV 1776 Sodium Chloride 0.9% 1, 525 000 ml @ 75 mls/hr IV . [id number] [facility] Rx#:[id number] Output: Urine 200 500 Estimated Blood Loss 300 Other: Voiding Method Indwelling Catheter Indwelling Catheter - Exam Inspection: Negative for any open fractures, significant erythema. There is some mild swelling present to the left hip diffusely. Dressing present over the left lateral hip. Some minimal spotting present. Sensation: Equal, symmetric, bilaterally intact throughout the upper and lower extremities on exam. Palpation: Moderate TTP diffusely throughout the left hip. Nontender to palpation throughout rest exam. Range of motion: Full range of motion throughout bilateral upper extremity and in right lower extremity exam. Left lower extremity range of motion is limited secondary to surgery to the left hip and pain referred to left hip. Patient is able wiggle toes and left foot in dorsi and plantarflex left ankle. Motor: 4/5 in all major motor groups in bilateral upper extremities and right lower extremity exam. Left lower extremity motor exam 4-/5 in resisted left hip flexion/extension and left knee flexion extension. Neurovascular: Radial pulses intact, 2+ bilaterally. Cap refill under 3 seconds in digits of upper extremities. DP pulses palpable bilaterally. Special tests: Negative Homans bilaterally - Labs CBC & Chem 7: 10/15/23 11:40 10/14/23 06:32 Labs: Abnormal Lab Results - Last 24 Hours (Table) 10/15/23 Range/Units 11:40 RBC 3.39 L (3.80-5.40) m/uL Hgb 10.5 L (11.4-16.0) gm/dL Hct 32.1 L (34.0-46.0) % Neutrophils # 8.1 H (1.3-7.7) k/uL Lymphocytes # 0.9 L (1.0-4.8) k/uL Assessment and Plan Assessment: 1. Left hip femoral neck fracture - Postop day #2 status post left hip hemiarthroplasty Plan: 1. Left hip femoral neck fracture - left hip hemiarthroplasty performed yesterday, 10/15/2023. Patient stable at bedside this morning sitting up in bed with dressing over left hip. Work with therapy daily. Pain medication as needed. We'll continue to follow patient during [facility]. Plan for discharge to rehab Mon vs . 2. Appreciate medical management 3. Pain management - Tylenol; [place] 4. DVT prophylaxis - Lovenox 5. GI prophylaxis - Colace 6. PT/OT - nonweightbearing left lower extremity 7. Encourage incentive spirometer use 8. Discharge planning - plan for discharge to rehab Monday versus Time with Patient: Less than 30
--- NOTE | 2023-10-17 12:16 | P.PN ---
Subjective Progress Note Date: 10/17/23 Principal diagnosis: Left hip femoral neck fracture Patient was seen at bedside this morning sitting up in chair with legs elevated and dressing over left hip. Patient's daughter was present during the encounter. Case management working on rehab placement currently. Patient says she is still having a lot of pain in the left hip especially when she ambulates with therapy. Patient says the pain is under better control and she is resting. Jasso is in place currently. Patient denies chest pain, fever, shortness breath, nausea, vomiting, change in vision, loss of bowel/bladder control. Objective - Vital Signs Vital signs: Vital Signs Temp 98.6 F 10/17/23 07:56 Pulse 70 10/17/23 07:56 Resp 16 10/17/23 07:56 BP 131/65 10/17/23 07:56 Pulse Ox 94 L 10/17/23 07:56 FiO2 Intake & Output 10/16/23 10/17/23 10/17/23 18:59 06:59 18:59 Intake Total 200 Output Total 300 200 Balance -300 0 Intake: IV 200 Sodium Chloride 0.9% 1, 200 000 ml @ 75 mls/hr IV . [id number] [facility] Rx#:[id number] Output: Urine 300 200 Other: Voiding Method Indwelling Catheter External Catheter Diaper External Catheter # Voids 1 - Exam Inspection: Negative for any open fractures, significant erythema. There is some mild swelling present to the left hip diffusely. Dressing present over the left lateral hip. Some minimal spotting present. Sensation: Equal, symmetric, bilaterally intact throughout the upper and lower extremities on exam. Palpation: Moderate TTP diffusely throughout the left hip. Nontender to palpation throughout rest exam. Range of motion: Full range of motion throughout bilateral upper extremity and in right lower extremity exam. Left lower extremity range of motion is limited secondary to surgery to the left hip and pain referred to left hip. Patient is able wiggle toes and left foot in dorsi and plantarflex left ankle. Motor: 4/5 in all major motor groups in bilateral upper extremities and right lower extremity exam. Left lower extremity motor exam 4-/5 in resisted left hip flexion/extension and left knee flexion extension. Neurovascular: Radial pulses intact, 2+ bilaterally. Cap refill under 3 seconds in digits of upper extremities. DP pulses palpable bilaterally. Special tests: Negative Homans bilaterally - Labs CBC & Chem 7: 10/15/23 11:40 10/14/23 06:32 Assessment and Plan Assessment: 1. Left hip femoral neck fracture - Postop day #2 status post left hip hemiarthroplasty Plan: 1. Left hip femoral neck fracture - left hip hemiarthroplasty performed 10/15/2023. Patient stable at bedside this morning sitting up in chair with dressing over left hip. Work with therapy daily. Pain medication as needed. We'll continue to follow patient during standard [facility]. Plan for discharge to rehab tomorrow versus . 2. Appreciate medical management 3. Pain management - Tylenol; [place] 4. DVT prophylaxis - Lovenox 5. GI prophylaxis - Colace 6. PT/OT - nonweightbearing left lower extremity 7. Encourage incentive spirometer use 8. Discharge planning - plan for discharge to rehab tomorrow versus Time with Patient: Less than 30
[2023-10-17] MEDS: SODIUM CHLORIDE 0.9% 1,000 ML IV SCH (12:32)
[2023-10-17] MEDS: FERROUS SULFATE 325 MG TAB PO SCH (12:33)
[2023-10-17 14:53] LABS: Basophils # (A) 0.02 X 10*3/uL (0.00-0.10); Basophils % (A) 0.2 %; Eosinophils # (A) 0.09 X 10*3/uL (0.04-0.35); Eosinophils % (A) 0.7 %; HCT 26.6 % (37.2-46.3); HGB 8.5 g/dL (12.0-15.0); Lymphocytes # (A) 1.58 X 10*3/uL (0.90-5.00); Lymphocytes % (A) 11.9 %; Mean Platelet Volume 10.5 FL (9.5-12.2); Monocytes # (A) 1.17 X 10*3/uL (0.20-1.00); Monocytes % (A) 8.8 %; NRBC Per 100 WBC 0 X 10*3/uL (0.00-0.01); Neutrophils # (A) 10.34 X 10*3/uL (1.80-7.70); Platelet Count 170 X 10*3/uL (140-440); RBC 2.83 X 10*6/uL (4.10-5.20); RDW 13.4 % (11.5-14.5); WBC 13.25 X 10*3/uL (4.50-10.00)
[2023-10-17] MEDS: CALCIUM CARB-VIT D 500 MG-5 MCG TAB PO SCH (18:16)
[2023-10-17] MEDS: SENNOSIDES-DOCUSATE SODIUM 1 EACH TAB PO SCH (20:29)
[2023-10-17] MEDS: ATORVASTATIN 10 MG TAB PO SCH (20:29)
[2023-10-18] MEDS: SODIUM CHLORIDE 0.9% 1,000 ML IV SCH ×2 (03:36→04:24)
[2023-10-18 05:37] LABS: Basophils % (A) 0 %; Eosinophils # (A) 0.2 k/uL (0-0.7); Eosinophils % (A) 2 %; HCT 23.6 % (34.0-46.0); Lymphocytes # (A) 1.1 k/uL (1.0-4.8); Lymphocytes % (A) 12 %; MCH 31.3 pg (25.0-35.0); MCV 94.7 fL (80.0-100.0); Mean Platelet Volume 8.6; Monocytes # (A) 0.5 k/uL (0-1.0); Monocytes % (A) 5 %; Neutrophils # (A) 7.2 k/uL (1.3-7.7); Neutrophils % (A) 79 %; Platelet Count 170 k/uL (150-450); RDW 13.4 % (11.5-15.5); WBC 9.1 k/uL (3.8-10.6)
[2023-10-18 05:42] LABS: HGB 7.8 gm/dL (11.4-16.0)
[2023-10-18 05:59] LABS: African American GFR (CKD) >90 (>60 ml/min/1.73 sqM); Anion Gap 7 mmol/L; Blood Urea Nitrogen 28 mg/dL (7-17); Calcium 8.2 mg/dL (8.4-10.2); Carbon Dioxide 26 mmol/L (22-30); Chloride 104 mmol/L (98-107); Glucose 106 mg/dL (74-99); Non-African American GFR(CKD) >90 (>60 ml/min/1.73 sqM); Potassium 3.5 mmol/L (3.5-5.1); Sodium 137 mmol/L (137-145)
[2023-10-18] MEDS: LEVOTHYROXINE 100 MCG TAB PO SCH (06:01)
[2023-10-18] MEDS: ENOXAPARIN 30 MG/0.3 ML SYRINGE SQ SCH (09:39)
[2023-10-18] MEDS: atenoloL 25 MG TAB PO SCH ×2 (09:40→16:24)
[2023-10-18] MEDS: SERTRALINE 50 MG TAB PO SCH (09:40)
--- NOTE | 2023-10-18 11:59 | P.PN ---
Subjective Progress Note Date: 10/18/23 Principal diagnosis: Left hip femoral neck fracture Patient was seen at bedside this morning sitting up in bed with legs elevated and dressing over left hip. Patient's daughter was present during the encounter. Case management working on rehab placement currently. Nurse alyx zuñiga patient had bowel movement which was black/tarry this morning, concerned for GI bleed. Medicine following this. Patient says the pain is under better control and she is resting. Patient denies chest pain, fever, shortness breath, nausea, vomiting, change in vision, loss of bowel/bladder control. Objective - Vital Signs Vital signs: Vital Signs Temp 97.8 F 10/18/23 06:58 Pulse 69 10/18/23 10:13 Resp 16 10/18/23 10:13 BP 121/56 10/18/23 10:13 Pulse Ox 100 10/18/23 10:13 FiO2 Intake & Output 10/17/23 10/18/23 10/18/23 18:59 06:59 18:59 Intake Total 700 Output Total 120 Balance -120 700 Intake: Intake, IV Titration 700 Amount Lactated Ringers 1,000 ml 700 @ 0 mls/hr IV .[facility] Rx#:[id number] Output: Urine 120 Other: Voiding Method Diaper External Catheter # Voids 2 # Bowel Movements 1 1 - Exam Inspection: Negative for any open fractures, significant erythema. There is some mild swelling present to the left hip diffusely. Dressing present over the left lateral hip. Some minimal spotting present. Sensation: Equal, symmetric, bilaterally intact throughout the upper and lower extremities on exam. Palpation: Moderate TTP diffusely throughout the left hip. Nontender to palpation throughout rest exam. Range of motion: Full range of motion throughout bilateral upper extremity and in right lower extremity exam. Left lower extremity range of motion is limited secondary to surgery to the left hip and pain referred to left hip. Patient is able wiggle toes and left foot in dorsi and plantarflex left ankle. Motor: 4/5 in all major motor groups in bilateral upper extremities and right lower extremity exam. Left lower extremity motor exam 4-/5 in resisted left hip flexion/extension and left knee flexion extension. Neurovascular: Radial pulses intact, 2+ bilaterally. Cap refill under 3 seconds in digits of upper extremities. DP pulses palpable bilaterally. Special tests: Negative Homans bilaterally - Labs CBC & Chem 7: 10/18/23 05:19 10/18/23 05:19 Labs: Abnormal Lab Results - Last 24 Hours (Table) 10/17/23 10/18/23 10/18/23 Range/Units 11:19 05:19 05:19 WBC 13.25 H (4.50-10.00) X 10*3/uL RBC 2.83 L 2.50 L (4.10-5.20) X 10*6/uL Hgb 8.5 L 7.8 L D (12.0-15.0) g/dL Hct 26.6 L 23.6 L (37.2-46.3) % Immature Gran # 0.05 H (0.00-0.04) X 10*3/uL Neutrophils # 10.34 H (1.80-7.70) X 10*3/uL Monocytes # 1.17 H (0.20-1.00) X 10*3/uL BUN 28 H (7-17) mg/dL Creatinine 0.45 L (0.52-1.04) mg/dL Glucose 106 H (74-99) mg/dL Calcium 8.2 L (8.4-10.2) mg/dL Assessment and Plan Assessment: 1. Left hip femoral neck fracture - Postop day #3 status post left hip hemiarthroplasty Plan: 1. Left hip femoral neck fracture - left hip hemiarthroplasty performed 10/15/2023. Patient stable at bedside this morning sitting up in bed with dressing over left hip. hemoglobin 7.8. patient on iron currently. medicine working up for GI bleed. okay to discontinue lovenox as long as patient has SON hose and SCDs on bilaterally. Work with therapy daily. Pain medication as needed. patient orthopedically stable for discharge. We will continue to be available as needed to see patient. follow up in office in [address] Bennett. Discharge per medicine. 2. Appreciate medical management 3. Pain management - Tylenol; [place] 4. DVT prophylaxis - Lovenox; if medicine working up for GI bleed, okay to discontinue lovenox as long as patient has SON hose and SCDs on bilaterally. 5. GI prophylaxis - Colace 6. PT/OT - nonweightbearing left lower extremity 7. Encourage incentive spirometer use 8. Discharge planning - discharge per medicine Time with Patient: Less than 30
[2023-10-18] MEDS: PANTOPRAZOLE 40 MG/10 ML VIAL IVP SCH ×2 (12:36→21:49)
[2023-10-18] MEDS: RIVASTIGMINE 13.3MG/24HR PATCH TRANSDERM SCH (12:36)
[2023-10-18] MEDS: FERROUS SULFATE 325 MG TAB PO SCH (14:04)
[2023-10-18 14:12] LABS: HCT 27.3 % (34.0-46.0); HGB 8.5 gm/dL (11.4-16.0); Hypochromasia Moderate; MCHC 31.3 g/dL (31.0-37.0); MCV 99.1 fL (80.0-100.0); Mean Platelet Volume 8.2; Platelet Count 202 k/uL (150-450); RBC 2.75 m/uL (3.80-5.40); RDW 13.5 % (11.5-15.5); WBC 11.4 k/uL (3.8-10.6)
--- NOTE | 2023-10-18 15:31 | P.PN ---
Subjective Progress Note Date: 10/18/23 Hospital Course: Patient is a 88 yo F with a PMH of advanced dementia, hypertension, hy perlipidemia, hypothyroidism, and asthma who presented from [facility] home after a fall. Hip and pelvis x-rays in the emergency room revealed a left femoral neck fracture with mild displacement. CT head and cervical spine revealed mild hydrocephalus without any acute abnormalities. EKG revealed sinus rhythm with first-degree AV block with PVCs of [address]/T-wave changes noted. Chest x-ray was unremarkable. Laboratory evaluation revealed leukocytosis of 14.7, BUN 36, creatinine 0.57, and glucose 125. She is now status post hemiarthroplasty. Patient did have a large bowel movement on 10/18 which was black and tarry. Hemoglobin has also been dropping. General surgery consulted. Subjective: Seen and examined at bedside. No new complaints by patient. Per nursing, patient did have a large tarry/black loose stool. Pertinent positives and negatives as discussed above, a complete review of systems was performed and all other systems are negative. Vitals Signs Reviewed. Gen: awake, alert HEENT: normocephalic, atraumatic, good hearing acuity, moist mucous membranes Resp: good air exchange, breathing comfortably with no accessory muscle use CVS: good distal perfusion x 4, GI: soft, NTTP, ND : no SPT, no CVAT MSK: no pitting edema, no clubbing Neuro: non-focal, moving all extremities Psych: cooperative, euthymic mood, oriented 1 Data Reviewed Today: Pertinent Labs: WBC 11.4, hemoglobin 7.8 now up to 8.5, creatinine 45 Imaging: No new imaging Assessment and Plan: Upper GI bleed Acute blood loss anemia Leukocytosis, likely due to acute stressor with no signs of active infection at this time Prerenal azotemia Traumatic left femoral neck fracture, status post hemiarthroplasty -Started on pantoprazole 40 IV twice a day -Repeat hemoglobin has trended -Pending evaluation by general surgery -Lovenox discontinued -Orthopedic surgery note reviewed, patient being transferred to medicine -For pain control, oral Tylenol as needed, oral [place] as needed, Dilaudid as needed Chronic conditions: Dementia, hypertension, hyperlipidemia, hypothyroidism, asthma -Continue home medications DVT ppx: SCDs Code status: Full code Anticipated discharge place: Subacute rehab Anticipated discharge time: Pending clinical course Objective - Vital Signs Vital signs: Vital Signs Temp 98.2 F 10/18/23 13:48 Pulse 76 10/18/23 13:48 Resp 19 10/18/23 13:48 BP 129/59 10/18/23 13:48 Pulse Ox 94 L 10/18/23 13:48 FiO2 Intake & Output 10/17/23 10/18/23 10/18/23 18:59 06:59 18:59 Intake Total 700 Output Total 120 Balance -120 700 Intake: Intake, IV Titration 700 Amount Lactated Ringers 1,000 ml 700 @ 0 mls/hr IV .[facility] Rx#:[id number] Output: Urine 120 Other: Voiding Method Diaper External Catheter # Voids 2 # Bowel Movements 1 3 - Labs CBC & Chem 7: 10/18/23 14:05 10/18/23 05:19 Labs: Abnormal Lab Results - Last 24 Hours (Table) 10/18/23 10/18/23 10/18/23 Range/Units 05:19 05:19 14:05 WBC 11.4 H (3.8-10.6) k/uL RBC 2.50 L 2.75 L (3.80-5.40) m/uL Hgb 7.8 L D 8.5 L (11.4-16.0) gm/dL Hct 23.6 L 27.3 L (34.0-46.0) % BUN 28 H (7-17) mg/dL Creatinine 0.45 L (0.52-1.04) mg/dL Glucose 106 H (74-99) mg/dL Calcium 8.2 L (8.4-10.2) mg/dL
[2023-10-18] MEDS: CALCIUM CARB-VIT D 500 MG-5 MCG TAB PO SCH (16:24)
[2023-10-18] MEDS: ACETAMINOPHEN TAB 325 MG TAB PO PRN (16:24)
[2023-10-18] MEDS: ATORVASTATIN 10 MG TAB PO SCH (21:50)
[2023-10-18] MEDS: SENNOSIDES-DOCUSATE SODIUM 1 EACH TAB PO SCH (21:51)
[2023-10-18] MEDS: HYDROcodone/APAP 5-325MG 1 EACH TAB PO PRN (22:10)
--- NOTE | 2023-10-18 22:40 | P.PN ---
Subjective Progress Note Date: 10/18/23 She reports known history of anemia. Hgb Drop. Will proceed with EGD. Objective - Vital Signs Vital signs: Vital Signs Temp 98.2 F 10/18/23 19:04 Pulse 69 10/18/23 19:04 Resp 16 10/18/23 19:04 BP 108/55 10/18/23 19:04 Pulse Ox 91 L 10/18/23 19:04 FiO2 Intake & Output 10/18/23 10/18/23 10/19/23 06:59 18:59 06:59 Intake Total 700 Balance 700 Intake: Intake, IV Titration 700 Amount Lactated Ringers 1,000 ml 700 @ 0 mls/hr IV .[facility] Rx#:[id number] Other: # Bowel Movements 3 - Labs CBC & Chem 7: 10/18/23 14:05 10/18/23 05:19 Labs: Abnormal Lab Results - Last 24 Hours (Table) 10/18/23 10/18/23 10/18/23 Range/Units 05:19 05:19 14:05 WBC 11.4 H (3.8-10.6) k/uL RBC 2.50 L 2.75 L (3.80-5.40) m/uL Hgb 7.8 L D 8.5 L (11.4-16.0) gm/dL Hct 23.6 L 27.3 L (34.0-46.0) % BUN 28 H (7-17) mg/dL Creatinine 0.45 L (0.52-1.04) mg/dL Glucose 106 H (74-99) mg/dL Calcium 8.2 L (8.4-10.2) mg/dL
[2023-10-19] MEDS: LEVOTHYROXINE 100 MCG TAB PO SCH (06:23)
[2023-10-19 06:56] LABS: Basophils % (A) 0 %; Eosinophils # (A) 0.3 k/uL (0-0.7); Eosinophils % (A) 4 %; HCT 27.2 % (34.0-46.0); HGB 8.7 gm/dL (11.4-16.0); Hypochromasia Slight; Lymphocytes # (A) 1.7 k/uL (1.0-4.8); Lymphocytes % (A) 22 %; MCH 30.8 pg (25.0-35.0); MCV 96.1 fL (80.0-100.0); Mean Platelet Volume 7.8; Monocytes # (A) 0.4 k/uL (0-1.0); Monocytes % (A) 6 %; Neutrophils % (A) 66 %; Platelet Count 229 k/uL (150-450); RBC 2.83 m/uL (3.80-5.40); RDW 13.2 % (11.5-15.5); WBC 7.6 k/uL (3.8-10.6)
[2023-10-19 07:12] LABS: African American GFR (CKD) >90 (>60 ml/min/1.73 sqM); Anion Gap 8 mmol/L; Blood Urea Nitrogen 25 mg/dL (7-17); Calcium 8.3 mg/dL (8.4-10.2); Carbon Dioxide 25 mmol/L (22-30); Chloride 105 mmol/L (98-107); Glucose 95 mg/dL (74-99); Non-African American GFR(CKD) 89 (>60 ml/min/1.73 sqM); Potassium 3.1 mmol/L (3.5-5.1); Sodium 138 mmol/L (137-145)
[2023-10-19] MEDS: atenoloL 25 MG TAB PO SCH ×2 (08:01→16:08)
[2023-10-19] MEDS: PANTOPRAZOLE 40 MG/10 ML VIAL IVP SCH ×2 (08:01→20:11)
[2023-10-19] MEDS: RIVASTIGMINE 13.3MG/24HR PATCH TRANSDERM SCH (08:01)
[2023-10-19] MEDS: SERTRALINE 50 MG TAB PO SCH (08:01)
[2023-10-19] MEDS ORDERED: POTASSIUM CHLORIDE ER 20 MEQ TAB.ER PO STA (09:57)
--- NOTE | 2023-10-19 10:16 | P.PN ---
Subjective Progress Note Date: 10/19/23 Principal diagnosis: Status post left hip hemiarthroplasty Patient evaluated today at bedside, she is working with physical therapy, family is also present at bedside. Patient appears comfortable, having very minimal discomfort at this time. Patient is scheduled for an EGD later today due to concern for GI bleed. Objective - Vital Signs Vital signs: Vital Signs Temp 98.3 F 10/19/23 07:11 Pulse 59 L 10/19/23 07:11 Resp 19 10/19/23 07:11 BP 146/46 10/19/23 07:11 Pulse Ox 89 L 10/19/23 07:11 FiO2 Intake & Output 10/18/23 10/19/23 10/19/23 18:59 06:59 18:59 Other: # Voids 1 # Bowel Movements 3 1 - Exam Left lower extremity: Incision is clean, dry, and intact. The foam dressing is in good condition. There is minimal soft tissue swelling and ecchymosis surrounding the medial and lateral aspects of the incision. Calf is soft, no tenderness with palpation. Plantar flexion, dorsiflexion, EHL, FHL are intact. Sensory exam to light touch throughout the extremity is intact, [drsal pedis pulses 2+.] - Labs CBC & Chem 7: 10/19/23 06:03 10/19/23 06:03 Labs: Abnormal Lab Results - Last 24 Hours (Table) 10/18/23 10/19/23 10/19/23 Range/Units 14:05 06:03 06:03 WBC 11.4 H (3.8-10.6) k/uL RBC 2.75 L 2.83 L (3.80-5.40) m/uL Hgb 8.5 L 8.7 L (11.4-16.0) gm/dL Hct 27.3 L 27.2 L (34.0-46.0) % Potassium 3.1 L (3.5-5.1) mmol/L BUN 25 H (7-17) mg/dL Creatinine 0.48 L (0.52-1.04) mg/dL Calcium 8.3 L (8.4-10.2) mg/dL Assessment and Plan Assessment: Status post left hip hemiarthroplasty Possible GI bleed Other medical comorbidities Plan: Pain control, continue with current medications DVT prophylaxis, continue with current medications Weight-bear as tolerated left lower extremity, recommend walker at all times Monitor surgical dressing Continue PT/OT Other medical insurance collector recommendations appreciated Discharge planning: Orthopedic standpoint. Stable for discharge to subacute rehab, please contact our orthopedic service with any questions Time with Patient: Less than 30
[2023-10-19] MEDS ORDERED: LIDOCAINE 2% (PF) 20 MG/ML 5 ML VIAL ONE (11:21)
[2023-10-19] MEDS ORDERED: IV FLUID CONTINUATION 500 ML IV ONE (11:21)
[2023-10-19] MEDS ORDERED: PROPOFOL 10 MG/ML 20 ML VIAL IV ONE (11:21)
--- NOTE | 2023-10-19 11:51 | P.PCN ---
Date of Procedure: 10/19/23 Description of Procedure: PREOPERATIVE DIAGNOSIS: Acute blood loss anemia Upper GI bleed POSTOPERATIVE DIAGNOSIS: Diaphragmatic hiatal hernia Duodenal stricture Moderate to severe protein malnutrition OPERATION: Esophagogastroduodenoscopy with dilation of duodenal stricture 6-12 mm balloon SURGEON: Amalia Ellis MD ANESTHESIA: MAC. INDICATIONS: The patient is a 88-year-old female who presents with anemia and possible upper gastrointestinal bleeding. clinical exam demonstrated moderate muscle wasting of the orbits and along the cheeks. Benefits and risks of the procedure were described. Informed consent was obtained. DESCRIPTION: The patient was brought into the endoscopy suite and laid in the left lateral decubitus position. An Olympus gastroscope was passed along the posterior oropharynx down to the distal esophagus where the squamocolumnar junction was encountered at 35 cm from the incisors. The stomach was entered and no bile reflux was found. Additional findings are listed below. The first through third portion of the duodenum was examined and stenosis of 6 mm was identified as 8 mm scope was used Retroflexion of the scope confirmed Hill grade 3 lower esophageal valve. The squamocolumnar junction demonstrated LA grade B erosive esophagitis. The stomach was desufflated. The patient tolerated the procedure well. FINDINGS: Squamocolumnar junction 35 cm from the incisors. Diaphragmatic hiatus at 38 cm. Hiatal hernia, 3 cm Hill grade 3 lower esophageal valve. LA grade B erosive esophagitis. Active duodenitis was stricture of 6 mm, second portion No gastric ulcers RECOMMENDATIONS: 1. Liquid diet 2. Recommend repeat upper endoscopy with dilation of duodenal stricture
[2023-10-19] MEDS: ACETAMINOPHEN TAB 325 MG TAB PO PRN (12:56)
[2023-10-19] MEDS: FERROUS SULFATE 325 MG TAB PO SCH (12:57)
[2023-10-19 13:03] VITALS: BMI 19.1
--- NOTE | 2023-10-19 15:01 | P.PN ---
Subjective Progress Note Date: 10/19/23 Hospital course: Patient is a very pleasant 88-year-old female with a past medical history of advanced dementia, hypertension, hyperlipidemia, hypothyroidism, and asthma. She presented to the emergency department on 10/13/[address] [facility] home. Hip and pelvis x-rays in the emergency room revealed a left femoral neck fracture with mild displacement. CT head and cervical spine revealed mild hydrocephalus without any acute abnormalities. EKG revealed sinus rhythm at 63 bpm with first-degree AV block with PVCs and no noted T-wave or ST abnormalities showing no signs of acute ischemia. Chest x-ray was unremarkable. Laboratory evaluation revealed leukocytosis of 14.7, BUN 36, creatinine 0.57, and glucose 125. She underwent a left hip hemiarthroplasty on 10/14/[address] Bennett. Patient did have a large bowel movement on 10/18/23 which was black and tarry and Hemoglobin was also dropping. General surgery consulted was then consulted and patient underwent EGD with dilation of duodenal stricture in which findings report squamocolumnar junction demonstrated grade B erosive esophagitis with active duodenitis and stricture of 6 mm. Physical exam: Patient seen and fully evaluated upon return to room from EGD with dilation of duodenal stricture. She currently denies having any complaints or pain. Patient reports swallowing water without any difficulties since procedure. Family visiting at bedside. Vital signs reviewed and stable. General: Nontoxic, no distress and appears stated age. Derm: Skin warm and dry, normal coloration for ethnicity. Head: Atraumatic, normocephalic and symmetric. Eyes: EOMs intact, no lid lag, and anicteric sclera Mouth: no lip lesions, mucus membranes moist Cardiovascular: regular rate and rhythm with normal S1S2, no murmur, positive posterior tibial pulses bilaterally, and cap refill < 2 seconds. Lungs: Respirations even, regular, and unlabored on room air. Lungs CTA bilaterally, no rhonchi, no rales, no wheezing, and no accessory muscle usage. Abdominal: soft, nontender to palpation, no guarding, no appreciable organomegaly Ext: ROM intact. No gross muscle atrophy, no edema, no contractures Neuro: Speech clear, face symmetrical and CN II-XII grossly intact with no noted focal neuro deficits Psych: Alert and oriented to person, place, time, and situation. Appropriate and pleasant affect. Assessment and Plan of Care: Upper GI bleed status post EGD with dilation of duodenal stricture Acute blood loss anemia Leukocytosis, likely due to acute stressor with no signs of active infection at this time Prerenal azotemia, improving General surgery consulted was then consulted and patient underwent EGD with dilation of duodenal stricture in which findings report squamocolumnar junction demonstrated grade B erosive esophagitis with active duodenitis and stricture of 6 mm. Continue Protonix 40 mg IVP twice daily. Repeat morning CBC for monitoring of hemoglobin closely and transfuse as needed for hemoglobin less than 7 or if patient develops signs of symptomatic anemia with active bleed. Continue ferrous sulfate 325 mg daily. Traumatic left femoral neck fracture, status post hemiarthroplasty Management per primary admitting orthopedic surgery team including DVT prophylaxis, pain management, wound/dressing care, weightbearing, and PT/OT. Discharge plan is for subacute rehab. Hypertension Continue daily medication regimen with atenolol 25 mg twice daily. Hyperlipidemia Continue daily medication regimen with atorvastatin 10 mg nightly. Hypothyroidism Continue daily medication regimen with levothyroxine 100 g daily. Dementia Continue daily medication regimen with sertraline 50 mg daily and Rivastigmine 13.3 mg every 24 hours transdermal patch. Data reviewed: Labs completed and reviewed. Hemoglobin stable at 8.7. BMP revealed hypokalemia with potassium of 3.1 orders placed for K [place] 40 mEq by mouth 1 dose. Code status: Full code DVT ppx: SCDs Anticipated discharge place: Subacute rehab Anticipated discharge time: Pending clinical course Patient was seen independently by Nurse Pracitioner. This document was prepared using [employer] dictation software. Please allow for errors in director of sustainable design, while rare they do occur. Objective - Vital Signs Vital signs: Vital Signs Temp 98.3 F 10/19/23 07:11 Pulse 59 L 10/19/23 07:11 Resp 19 10/19/23 07:11 BP 146/46 10/19/23 07:11 Pulse Ox 89 L 10/19/23 07:11 FiO2 Intake & Output 10/18/23 10/19/23 10/19/23 18:59 06:59 18:59 Other: # Voids 1 # Bowel Movements 3 1 - Labs CBC & Chem 7: 10/19/23 06:03 10/19/23 06:03 Labs: Abnormal Lab Results - Last 24 Hours (Table) 1210/19/23 10/19/23 Range/Units 14:05 06:03 06:03 WBC 11.4 H (3.8-10.6) k/uL RBC 2.75 L 2.83 L (3.80-5.40) m/uL Hgb 8.5 L 8.7 L (11.4-16.0) gm/dL Hct 27.3 L 27.2 L (34.0-46.0) % Potassium 3.1 L (3.5-5.1) mmol/L BUN 25 H (7-17) mg/dL Creatinine 0.48 L (0.52-1.04) mg/dL Calcium 8.3 L (8.4-10.2) mg/dL
--- NOTE | 2023-10-19 15:08 | CDI ---
Documentation Clarification Form Date: 10/19/2023 02:36:00 PM From: Josefina Yang RN CCDS Phone: [phone] Admit Date: 10/13/2023 08:53:00 PM Patient Name: Reshma Dhillon Visit Number: [id number] Discharge Date: ATTENTION: The Clinical Documentation Specialists (CDI) and [facility] Coding Staff appreciate your assistance in clarifying documentation. Please respond to the clarification below the line at the bottom and electronically sign. The CDI & [facility] Coding staff will review the response and follow-up if needed. Please note: Queries are made part of the Legal Health Record. If you have any questions, please contact the author of this message via ITS. Dr. Amalia Ellis There is documentation of Moderate to Severe protein malnutrition, 10/09, Esophagogastroduodenoscopy procedure note. Additional clarification is requested. History/Risk Factors: 88-year-old female presents to the ED from [facility] home after a fall. Admitted with femoral neck fracture. Medical History: Advanced dementia, HTN, HLD, Hypothyroidism and asthma. 10/14, H&P. Clinical Indicators: Nutritional assessment, 10/19: BMI 19.1kg Height 5ft 5inch Estimated weight by staff 52.163.kg Estimated nutritional needs: Kcals: Energy needs [id number] Protein: Needs 62-78 grams/day Estimated Fluid needs: 1560-1820mls/day Inadequate energy intake related to appetite loss, advanced age and dementia. Evidenced by <25% POP intake of meals x 6 days. Esophagogastroduodenoscopy procedure note, 10/19: Clinical exam demonstrated moderate muscle wasting of the orbits and along the cheeks. Treatment: Dilation of duodenal stricture, Clear liquid diet, Nutritional consult, Texture modified diet chopped, Monitor PO intake, I & Os Can you please clarify the severity of ? [ X ] Severe protein malnutrition [ ] Moderate protein malnutrition [ ] Other, please specify [ ] Unable to determine (Template Last Revised: December 2020) MTDD
[2023-10-19] MEDS: CALCIUM CARB-VIT D 500 MG-5 MCG TAB PO SCH (16:08)
[2023-10-19] MEDS: ATORVASTATIN 10 MG TAB PO SCH (20:12)
[2023-10-19] MEDS: SENNOSIDES-DOCUSATE SODIUM 1 EACH TAB PO SCH (20:12)
--- NOTE | 2023-10-19 22:36 | P.PN ---
Subjective Progress Note Date: 10/19/23 Principal diagnosis: She denies prior dysphagia. She is tolerating liquid diet. Family at bedside who reports that she has low appetite and has trouble eating dry chicken. She has duodenal stricture status post dilation. May advance diet. Objective - Vital Signs Vital signs: Vital Signs Temp 98.0 F 10/19/23 19:40 Pulse 62 10/19/23 19:40 Resp 18 10/19/23 19:40 BP 153/55 10/19/23 19:40 Pulse Ox 95 10/19/23 19:40 FiO2 Intake & Output 10/19/23 10/19/23 10/20/23 06:59 18:59 06:59 Intake Total 100 Balance 100 Weight 52.163 kg Intake: IV 100 Other: Voiding Method Diaper # Voids 1 1 # Bowel Movements 1 1 - Labs CBC & Chem 7: 10/19/23 06:03 10/19/23 06:03 Labs: Abnormal Lab Results - Last 24 Hours (Table) 10/19/23 10/19/23 Range/Units 06:03 06:03 RBC 2.83 L (3.80-5.40) m/uL Hgb 8.7 L (11.4-16.0) gm/dL Hct 27.2 L (34.0-46.0) % Potassium 3.1 L (3.5-5.1) mmol/L BUN 25 H (7-17) mg/dL Creatinine 0.48 L (0.52-1.04) mg/dL Calcium 8.3 L (8.4-10.2) mg/dL
[2023-10-20] MEDS: LEVOTHYROXINE 100 MCG TAB PO SCH (06:44)
[2023-10-20 07:24] VITALS: BP 162/65; PULSE 63; RESP 20; TEMP 97.4
[2023-10-20] MEDS: SERTRALINE 50 MG TAB PO SCH (07:34)
[2023-10-20] MEDS: atenoloL 25 MG TAB PO SCH (07:34)
[2023-10-20] MEDS: RIVASTIGMINE 13.3MG/24HR PATCH TRANSDERM SCH (07:59)
[2023-10-20] MEDS ORDERED: PANTOPRAZOLE 40 MG TABLET PO SCH (08:15)
[2023-10-20 08:43] LABS: HGB 8.5 g/dL (12.0-15.0); MCH 30.8 pg (27.0-32.0); MCHC 32.7 g/dL (32.0-37.0); MCV 94.2 FL (80.0-97.0); Mean Platelet Volume 9.4 FL (9.5-12.2); NRBC Per 100 WBC 0 X 10*3/uL (0.00-0.01); Platelet Count 293 X 10*3/uL (140-440); RBC 2.76 X 10*6/uL (4.10-5.20); RDW 13.7 % (11.5-14.5); WBC 8.42 X 10*3/uL (4.50-10.00)
--- NOTE | 2023-10-20 11:41 | P.DS ---
Providers Date of admission: 10/13/23 20:53 Expected date of discharge: 10/20/23 Attending physician: Alexx Nicole MD Consults: 10/13/23 20:53 Consult Physician Urgent Consulting Provider: Anette Fournier Consult Reason/Comments: fall, left hip fracture Do you want consulting provider notified?: Already Contacted 10/18/23 10:20 Consult Physician Urgent Consulting Provider: Amalia Ellis Consult Reason/Comments: possible UGI bleed Do you want consulting provider notified?: Yes Primary care physician: Physician Nonstaff Hospital Course: Discharge Diagnosis: Upper GI bleed status post EGD with dilation of duodenal stricture. Patient to continue with Protonix 40 mg twice a day as well as ferrous sulfate 325 mg daily with meals. Acute blood loss anemia, stable. Hemoglobin is stable at 8.5. Leukocytosis, secondary to acute stressor with no signs of active infection. Resolved. WBC count 8.42 on day of discharge. Prerenal azotemia, improved. Traumatic left femoral neck fracture, status post hemiarthroplasty on 10/14/23. Patient to follow up outpatient with Dr. Bennett in 2 weeks. Hypertension. Continue daily medication regimen with atenolol 25 mg twice daily. Hyperlipidemia. Continue daily medication regimen with atorvastatin 10 mg nightly. Hypothyroidism. Continue daily medication regimen with levothyroxine 100 g daily. Dementia. Continue daily medication regimen with sertraline 50 mg daily and Rivastigmine 13.3 mg every 24 hours transdermal patch. Hospital Course: Patient is a very pleasant 88-year-old female with a past medical history of advanced dementia, hypertension, hyperlipidemia, hypothyroidism, and asthma. She presented to the emergency department on 10/13/23 status post fall at [facility] home. Hip and pelvis x-rays in the emergency room revealed a left femoral neck fracture with mild displacement. CT head and cervical spine revealed mild hydrocephalus without any acute abnormalities. EKG revealed sinus rhythm at 63 bpm with first-degree AV block with PVCs and no noted T-wave or ST abnormalities showing no signs of acute ischemia. Chest x-ray was unremarkable. Laboratory evaluation revealed leukocytosis of 14.7, BUN 36, creatinine 0.57, and glucose 125. She underwent a left hip hemiarthroplasty on 10/14/[address] Bennett. Ewelina ent did have a large bowel movement on 10/18/23 which was black and tarry and Hemoglobin was also dropping. General surgery consulted was then consulted and patient underwent EGD with dilation of duodenal stricture on 10/19/23. EGD revealed reports of squamocolumnar junction demonstrated grade B erosive esophagitis with active duodenitis and stricture of 6 mm. status post dilation of esophageal stricture patient's diet was slowly advanced and she has tolerated well. Patient is now tolerating a regular diet and denies having any complaints. Her hemoglobin is stable at 8.5 and has had no further episodes of melena. Patient has been cleared by orthopedic surgery team as well as Gen. surgery team for discharge. Medically, patient is stable for discharge at this time. Patient being discharged to [facility] for rehab. Patient to follow up outpatient with PCP in 1-2 days, orthopedic surgeon in 2 weeks, and general surgeon in 2 weeks. Physical exam: Vital signs reviewed and stable. General: Nontoxic, no distress and appears stated age. Derm: Skin warm and dry, normal coloration for ethnicity. Head: Atraumatic, normocephalic and symmetric. Eyes: EOMs intact, no lid lag, and anicteric sclera Mouth: no lip lesions, mucus membranes moist Cardiovascular: regular rate and rhythm with normal S1S2, no murmur, positive posterior tibial pulses bilaterally, and cap refill < 2 seconds. Lungs: Respirations even, regular, and unlabored on room air. Lungs CTA bilaterally, no rhonchi, no rales, no wheezing, and no accessory muscle usage. Abdominal: soft, nontender to palpation, no guarding, no appreciable organomegaly Ext: ROM intact. No gross muscle atrophy, no edema, no contractures Neuro: Speech clear, face symmetrical and CN II-XII grossly intact with no noted focal neuro deficits Psych: Alert and oriented to person, place, time, and situation. Appropriate and pleasant affect. A total of 36 minutes of time were spent preparing this complex discharge summary. Pt was discharged on 10/20/23 at 11:32 AM. Patient was seen independently by Nurse Practitioner. This document was prepared using [employer] dictation software. Please allow for errors in inventory audit clerk while rare they do occur. Mathew Nova NP rendered care for this patient independently, reviewed the findings and plan as documented in the note above. I did not physically speak with or examine the patient on this date. Patient Condition at Discharge: Stable Plan - Discharge Summary Discharge Rx Participant: No New Discharge Prescriptions: New HYDROcodone/APAP 5-325MG [[place] 5-325] 1 tab PO Q6HR PRN #21 tab PRN Reason: Pain Pantoprazole [Protonix] 40 mg PO AC-BID tab Sennosides/Docusate Sodium [Senna Plus 8.6-50 mg Softgel] 1 each PO DAILY #20 capsule Ferrous Sulfate [Iron (65 MG Elemental)] 325 mg PO W/LUNCH tab Continue Calcium Carb-Vit D 500Mg-5Mcg [Oscal 500+D 5 Mcg (200 Iu)] 1 tab PO DAILY@1700 atenoloL 25 mg PO BID@0800,1700 Aspirin [Adult Low Dose Aspirin EC] 81 mg PO DAILY@0800 Docusate Sodium [Dok] 100 mg PO DAILY PRN PRN Reason: Constipation Acetaminophen Tab [Tylenol] 650 mg PO Q4H PRN PRN Reason: Fever And/ Or Pain guaiFENesin-DM 100-10MG/5ML [Robitussin DM] 5 ml PO Q4H PRN PRN Reason: COUGH/CONGESTION Rivastigmine 13.3MG/24Hr Patch [Exelon 13.3MG/24Hr Patch] 1 patch TRANSDERM DAILY@0800 Lovastatin [Mevacor] 40 mg PO HS@2000 Citrucel 500mg Tablet 1 tab PO DAILY@0800 Lactobacillus Acidophilus [Acidophilus Probiotic] 1 cap PO DAILY@0800 Zinc Oxide [Cozima] 1 applic TOPICAL DAILY PRN PRN Reason: BUTTOCKS Zinc Oxide [Cozima] 1 applic TOPICAL TID Ondansetron [Zofran] 4 mg PO DAILY PRN PRN Reason: Nausea Calcium Carbonate [Tums] 1,000 mg PO Q2H PRN PRN Reason: Gi Upset Magnesium Hydroxide [Milk of Magnesia] 2,400 mg PO DAILY PRN PRN Reason: Constipation Sertraline [Zoloft] 50 mg PO DAILY@0800 Hoffman-3/Dha/Epa/Fish Oil [Fish Oil 1,000 mg Softgel] 1 cap PO DAILY@0800 Levothyroxine Sodium [Synthroid] 100 mcg PO DAILY@0700 Discontinued Loperamide [Imodium] 2 mg PO QID PRN PRN Reason: Diarrhea Discharge Medication List Aspirin [Adult Low Dose Aspirin EC] 81 mg PO DAILY@0800 03/26/16 [History] Calcium Carb-Vit D 500Mg-5Mcg [Oscal 500+D 5 Mcg (200 Iu)] 1 tab PO DAILY@1700 03/26/16 [History] atenoloL 25 mg PO BID@0800,1700 03/26/16 [History] Acetaminophen Tab [Tylenol] 650 mg PO Q4H PRN 10/13/23 [History] Calcium Carbonate [Tums] 1,000 mg PO Q2H PRN 10/13/23 [History] Citrucel 500mg Tablet 1 tab PO DAILY@0810/13/23 [History] Docusate Sodium [Dok] 100 mg PO DAILY PRN 10/13/23 [History] Lactobacillus Acidophilus [Acidophilus Probiotic] 1 cap PO DAILY@0810/13/23 [History] Levothyroxine Sodium [Synthroid] 100 mcg PO DAILY@0710/13/23 [History] Lovastatin [Mevacor] 40 mg PO HS@199910/13/23 [History] Magnesium Hydroxide [Milk of Magnesia] 2,400 mg PO DAILY PRN 10/13/23 [History] Hoffman-3/Dha/Epa/Fish Oil [Fish Oil 1,000 mg Softgel] 1 cap PO DAILY@0810/13/23 [History] Ondansetron [Zofran] 4 mg PO DAILY PRN 10/13/23 [History] Rivastigmine 13.3MG/24Hr Patch [Exelon 13.3MG/24Hr Patch] 1 patch TRANSDERM DAILY@79910/13/23 [History] Sertraline [Zoloft] 50 mg PO DAILY@79910/13/23 [History] Zinc Oxide [Cozima] 1 applic TOPICAL DAILY PRN 10/13/23 [History] Zinc Oxide [Cozima] 1 applic TOPICAL TID 10/13/23 [History] guaiFENesin-DM 100-10MG/5ML [Robitussin DM] 5 ml PO Q4H PRN 10/13/23 [History] HYDROcodone/APAP 5-325MG [[place] 5-325] 1 tab PO Q6HR PRN #21 tab 10/18/23 [Rx] Sennosides/Docusate Sodium [Senna Plus 8.6-50 mg Softgel] 1 each PO DAILY #20 capsule 10/18/23 [Rx] Ferrous Sulfate [Iron (65 MG Elemental)] 325 mg PO W/LUNCH tab 10/20/23 [Rx] Pantoprazole [Protonix] 40 mg PO AC-BID tab 10/20/23 [Rx] Follow up Appointment(s)/Referral(s): Myles Bennett DO [Doctor of Osteopathic Medicine] - 2 Weeks Ilan Rosenbaum MD [STAFF PHYSICIAN] - 1 Week Amalia Ellis MD [STAFF PHYSICIAN] - 2 Weeks Patient Instructions/Handouts: Pyloric Stenosis (GEN), Precautions after Total Joint Replacement Surgery (DC), ORIF of Hip Fracture (DC) Activity/Diet/Wound Care/Special Instructions: Activity: As tolerated requires assistance Diet: Heart healthy and carb consistent diet. Avoid salts, or foods with hidden salts such as canned or boxed foods and frozen dinners. Extra salt makes your heart work harder and traps the fluid in your body for longer. Special Instructions: Take all of your medications as directed and remember to keep all of your doctor's appointments and follow-up as needed. Thank you for allowing us to participate in your care, it was truly a pleasure having you for our patient!!! Orthopedic Discharge Instructions: 1. Wound care and infection precautions, keep incision dry and covered while showering, no lotions, creams, moisturizers. No soaking, pools, hot tubs. Do not scrub over incision. 2. Weight-bear as tolerated with walker / cane until follow-up. 3. Ice and elevate when necessary. Do not exceed 20 minutes per hour with ice pack. 4. Utilize compression sleeve until seen at first follow up appointment. 5. Pain meds and anticoagulants per prescription. 6. Pain medication has potential to cause constipation. Increase oral fluid and fiber intake. Contact primary care provider if you have not had a bowel movement within 48 hours after discharge. 7. No anti-inflammatory medication until discussed at first post operative visit, this including Motrin, Aleve, Mobic, Diclofenac. 8. Follow up in office at [address] Bennett 9. Follow up with your primary care doctor 7-10 days after discharge. 10. Contact [facility] with any questions, . Discharge Disposition: TRANSFER TO SNF/ECF
[2023-10-20 12:06] LABS: Blood Urea Nitrogen 18.3 mg/dL (9.0-27.0); Glucose 96 mg/dL (70-110); Magnesium 1.9 mg/dL (1.5-2.4)
[2023-10-20 12:07] LABS: ALT 37 U/L (8-44); AST 38 U/L (13-35); Albumin 2.9 g/dL (3.8-4.9); Albumin/Globulin Ratio 1.21 Ratio (1.60-3.17); Alkaline Phosphatase 57 U/L (41-126); Calcium 8.5 mg/dL (8.7-10.3); Carbon Dioxide 24.7 mmol/L (21.6-31.8); Chloride 105 mmol/L (96-109); Globulin 2.4 g/dL (1.6-3.3); Potassium 3.5 mmol/L (3.5-5.5); Sodium 139 mmol/L (135-145); Total Bilirubin 0.8 mg/dL (0.3-1.2); Total Protein 5.3 g/dL (6.2-8.2)
[2023-10-20] MEDS: FERROUS SULFATE 325 MG TAB PO SCH (12:14)
== END 2023-10-20 13:12 | DRG 521 ==
LOC: EC 17:59 → 4SSUR 20:53
PROVIDERS: ADMIT Student in an Organized Health Care Education/Training Program; ATTEND Student in an Organized Health Care Education/Training Program
PROC: 0SRS01Z Replacement of Left Hip Joint, Femoral Surface with Metal Synthetic Substitute, Open Approach (ICD-10-PCS; principal; 2023-10-15 08:00)
PROC: 0D798ZZ Dilation of Duodenum, Via Natural or Artificial Opening Endoscopic (ICD-10-PCS; 2023-10-19)
DX: S72.002A Fracture of unspecified part of neck of left femur, initial encounter for closed fracture (principal); E43 Unspecified severe protein-calorie malnutrition; K22.11 Ulcer of esophagus with bleeding; K31.5 Obstruction of duodenum; G91.9 Hydrocephalus, unspecified; D62 Acute posthemorrhagic anemia; Z68.1 Body mass index [BMI] 19.9 or less, adult; K22.2 Esophageal obstruction; F03.90 Unspecified dementia, unspecified severity, without behavioral disturbance, psychotic disturbance, mood disturbance, and anxiety; S01.01XA Laceration without foreign body of scalp, initial encounter; K29.80 Duodenitis without bleeding; E03.9 Hypothyroidism, unspecified; E78.00 Pure hypercholesterolemia, unspecified; I10 Essential (primary) hypertension; I44.0 Atrioventricular block, first degree; E87.6 Hypokalemia; K44.9 Diaphragmatic hernia without obstruction or gangrene; J45.909 Unspecified asthma, uncomplicated; M19.90 Unspecified osteoarthritis, unspecified site; R39.2 Extrarenal uremia; Z79.82 Long term (current) use of aspirin; Z79.890 Hormone replacement therapy; Z79.899 Other long term (current) drug therapy; Z85.3 Personal history of malignant neoplasm of breast; Z90.11 Acquired absence of right breast and nipple; Z71.3 Dietary counseling and surveillance; Z88.6 Allergy status to analgesic agent; Z88.5 Allergy status to narcotic agent
CPT/HCPCS: 43245; 70450; 71045; 72125; 73501; 73502; 80048; 80053; 83735; 85025; 85027; 85610; 85730; 93005; 94760; 99285